=== PATIENT | male | born 1945 | race Caucasian/White ===

== ENCOUNTER → 2016-09-06 | Outpatient (CLI) | payer BC, OTHER ==
[~2016-09-06] MED LIST: CRS/10 PO; DICL50TA3 PO; LISI20TA3 PO; METO50TA7 PO; SILO8CAP PO; ZNTT/150 PO
[2016-09-06 17:25] LABS: BASO % 0.1 %; BASO ABS # 0.01 K/uL (0-0.2); COMPLETE YES; EOS % 1.1 %; HEMATOCRIT 44.1 % (42-52); IG% 0.1 %; LYMPH % 13.8 %; MEAN CELL VOLUME 93.8 fL (80-100); MEAN CORPUSCULAR HEMOGLOBIN 31.5 pg (25-34); MEAN CORPUSCULAR HGB CONC 33.6 g/dl (32-36); MEAN PLATELET VOLUME 10.7 fL (7.4-10.4); MONO % 8.6 %; NEUT % 76.3 %; PLATELET COUNT 192 K/uL (130-400); WHITE BLOOD COUNT 7.98 K/uL (4.8-10.8)
[2016-09-06 17:50] LABS: ALT/SGPT 19 U/L (12-78); AST/SGOT 13 U/L (15-37); BLOOD UREA NITROGEN 18 mg/dl (7-18); BUN/CREATININE RATIO 19.1 (10-20); CALCIUM 8.7 mg/dl (8.5-10.1); CARBON DIOXIDE 30 mmol/L (21-32); CHLORIDE 106 mmol/L (98-107); CREATININE 0.94 mg/dl (0.60-1.40); GLUCOSE 80 mg/dl (70-99); POTASSIUM 4.1 mmol/L (3.5-5.1); SODIUM 143 mmol/L (136-145)
[2016-09-06 18:01] LABS: ALB/GLOB RATIO 1.4 (0.9-2); ALKALINE PHOSPHATASE 59 U/L (45-117); THYROID STIMULATING HORMONE 0.488 uIu/ml (0.300-4.500)
== END | disposition home or self-care (01) ==
LOC: C.LABBFT 12:35
PROVIDERS: ATTEND Internal Medicine
DX: I45.9 Conduction disorder, unspecified (principal); R42 Dizziness and giddiness

== ENCOUNTER → 2016-12-15 | Outpatient (CLI) | payer BC ==
[2016-12-15 12:24] LABS: ALT/SGPT 18 U/L (12-78); BLOOD UREA NITROGEN 17 mg/dl (7-18); BUN/CREATININE RATIO 15.2 (10-20); CARBON DIOXIDE 30 mmol/L (21-32); CHLORIDE 107 mmol/L (98-107); CHOLESTEROL 107 mg/dl (0-200); GLUCOSE 89 mg/dl (70-99); POTASSIUM 4.4 mmol/L (3.5-5.1); SODIUM 144 mmol/L (136-145); TRIGLYCERIDES 78 mg/dl (0-150); VERY LOW DENSITY LIPOPROT CALC 16 mg/dl
[2016-12-15 12:27] LABS: ALB/GLOB RATIO 1.3 (0.9-2); ALKALINE PHOSPHATASE 58 U/L (45-117); AST/SGOT 16 U/L (15-37); CHOLESTEROL/HDL RATIO 2.8; HDL CHOLESTEROL 38 mg/dl; LDL CHOLESTEROL CALCULATED 53 mg/dl
== END | disposition home or self-care (01) ==
LOC: C.LABBFT 08:03
PROVIDERS: ATTEND Physician Assistant Medical
DX: E78.5 Hyperlipidemia, unspecified (principal)

== ENCOUNTER → 2017-04-26 | Outpatient (CLI) | payer BC | END | disposition home or self-care (01) | LOC: C.LABBFT 11:17 | PROVIDERS: ATTEND Internal Medicine | DX: R93.1 Abnormal findings on diagnostic imaging of heart and coronary circulation (principal) ==

== ENCOUNTER → 2017-05-18 | Outpatient (CLI) | payer BC ==
[2017-05-18 14:08] LABS: URINE TOTAL PROTEIN 11.6 mg/dl (0-11.9)
[2017-05-18 14:25] LABS: URINE TOTAL PROTEIN CALC 92.8 mg/24 hr (0-149.1)
--- NOTE | 2017-05-25 11:26 | CODING QUERY MEDICAL NECESSITY ---
SUPPORTING DIAGNOSIS NEEDED A supporting diagnosis is required for the test/procedure performed on this patient in order for us to be reimbursed by the patient's insurance. Please provide a supporting diagnosis for the following test/procedure listed below next to the test name along with your signature. *If there is no additional diagnosis for this patient that would support the following test/procedure please document that below next to the test/procedure. Test(s)/Procedure(s) that require a supporting diagnosis: * PSA DIAGNOSIS: Provider Signature: Date: Thank you Bonny Braga [employer] Once completed, please kindly fax back to [phone] For questions please call [phone]
== END | disposition home or self-care (01) ==
LOC: C.LAB1850 10:29
PROVIDERS: ATTEND Internal Medicine Clinical Cardiac Electrophysiology
DX: N52.9 Male erectile dysfunction, unspecified (principal); F52.8 Other sexual dysfunction not due to a substance or known physiological condition; I51.7 Cardiomegaly

== ENCOUNTER → 2017-06-10 | Outpatient (CLI) | payer BC ==
--- NOTE | 2017-06-10 10:57 | DIAGNOSTIC IMAGING REPORT ---
(RENAL)RETROPERITON COMP HISTORY: 71 years-old Male N28.1 Cyst of kidney, acquiredno latex [id number] history of a 1.7 cm right renal cyst and prostamegaly. Follow-up study. COMPARISON: Renal ultrasound 10/28/2014 TECHNIQUE: Multiple real-time sonographic images of the kidneys and urinary bladder were obtained assessing grayscale appearance and color flow FINDINGS: The right kidney measures 11.3 x 4.8 x 5.6 cm. There is mildly increased renal echogenicity suggesting chronic medical renal disease. 3 mm echogenic focus of the superior pole right kidney suggests nonobstructing calculus. There is no hydronephrosis. There is a cyst of the lower pole right kidney measuring up to 1.9 cm, likely unchanged from comparison study. No suspicious mass lesions of the right kidney. The left kidney measures 11.3 x 6.4 x 6.2 cm. Mildly increased echogenicity of the left kidney is also seen suggesting chronic medical renal disease. No left-sided renal calculi or hydronephrosis. No suspicious mass lesions of the left. Prostamegaly with urinary bladder wall thickening and trabeculation. Bilateral ureteral jets are seen. IMPRESSION: 1. Nonobstructing calculus of the superior pole right kidney, 3 mm. No hydronephrosis. 2. 1.9 cm cyst of the lower pole right kidney appears stable from 10/28/2014. 3. Prostamegaly with evidence of chronic urinary bladder outlet obstruction. 4. Mildly increased echogenicity of the bilateral kidneys suggests chronic medical renal disease. The above report was generated using voice recognition software. It may contain grammatical, syntax or spelling errors. Electronically signed by: Jair Pollard M.D. 06/10/2017 10:56 AM Dictated Date/Time: 06/10/2017 10:52 AM
== END | disposition home or self-care (01) ==
LOC: C.ULTR 09:57
PROVIDERS: ATTEND Urology
DX: N28.1 Cyst of kidney, acquired (principal); N20.0 Calculus of kidney; N40.1 Benign prostatic hyperplasia with lower urinary tract symptoms; N32.0 Bladder-neck obstruction

== ENCOUNTER 2017-10-02 19:15 | Inpatient (IN) | payer BC, OTHER ==
[~2017-10-02] VITALS: Ht 188 cm; Wt 82.0 kg
[~2017-10-02 19:15] MED LIST changes: -METO50TA7 PO; +METO50TA8 PO; +RANI150T85 PO; -ZNTT/150 PO
--- NOTE | 2017-10-02 19:52 | EMERGENCY ROOM VISIT NOTE ---
History Report prepared by Tommy: Jatin Peña Under the Supervision of: Dr. Chari Schaeffer D.O. First contact with patient: 19:34 Chief Complaint: SHORTNESS OF BREATH Stated Complaint: SOB History of Present Illness The patient is a 71 year old male who presents to the Emergency Room with complaints of intermittent episodes of shortness of breath which have been occurring for the past several months. The patient notes that he occasionally feels as if he cannot take in enough air and feels like his lungs are only half filled. The patient reports that nothing brings on his episodes. According to the patient's , the patient occasionally breathes heavily while sleeping, but then stops breathing for short periods of time. She also notes that the patient has been coughing recently. The patient denies any fevers, chills, chest pain, chest pressure, dizziness, or lightheadedness. The patient's notes that the patient's legs have been swollen for the past several months with the left foot being more swollen than the right foot. The patient states that he has a history of kidney stones, but denies being told that his kidneys were ever failing. The patient denies ever being diagnosed with asthma or smoking, but notes that he was regularly exposed to second hand smoke for extended periods of time in the past. The patient reports that he may have cardiac problems, and notes that he is scheduled to have an MRI performed at [facility] on October 11. He denies any recent changes in his medications. The patient was a poor historian and was unable to accurately recall many of his present symptoms. Source of History: patient, spouse/significant other Onset: Several months ago Position: other (Global ) Quality: other (empty feeling in lungs ) Timing: intermittent Associated Symptoms: + cough, No fevers, No chills, No chest pain (or pressure) Note: Denies: Dizziness, lightheadedness Associated Symptoms: Swelling of legs. Review of Systems See HPI for pertinent positives & negatives. A total of 10 systems reviewed and were otherwise negative. Past Medical & Surgical Medical Problems: (1) Hypertension Surgical Problems: (1) History of appendectomy Family History Diabetes mellitus Heart disease Hypertension Kidney stones Social History Smoking Status: Never Smoker Alcohol Use: none Drug Use: none Marital Status: Occupation Status: employed Current/Historical Medications Scheduled Diclofenac (Voltaren), 50 MG PO BID Lisinopril (Prinivil), 20 MG PO QAM Metoprolol Succ (Toprol Xl) (Toprol-Xl), 50 MG PO QAM Metoprolol Succ (Toprol Xl) (Toprol-Xl), 25 MG PO PM Ranitidine (Zantac), 1 TAB PO BID Rosuvastatin Calcium (Crestor), 10 MG PO QPM Silodosin (Rapaflo), 1 CAP PO QPM Allergies Coded Allergies: No Known Allergies (Verified , 12/18/15) Physical Exam Vital Signs Date Time Temp Pulse Resp B/P (MAP) Pulse Ox O2 Delivery O2 Flow Rate FiO2 10/02/17 21:18 70 10/02/17 21:09 73 18 144/87 96 Room Air 10/02/17 19:51 Room Air 95 10/02/17 19:40 95 Room Air 10/02/17 19:29 36.4 74 22 158/91 96 Room Air Physical Exam GENERAL: alert, well appearing, well nourished, no distress, non-toxic EYE EXAM: normal conjunctiva, PERRL and EOM's grossly intact OROPHARYNX: no exudate, no erythema, lips, buccal mucosa, and tongue normal and mucous membranes are moist NECK: supple, no nuchal rigidity, no adenopathy, non-tender LUNGS: Clear to auscultation. Normal chest wall mechanics HEART: no murmurs, S1 normal and S2 normal ABDOMEN: abdomen soft, non-tender, normo-active bowel sounds, no masses, no rebound or guarding. BACK: Back is symmetrical on inspection and there is no deformity, no midline tenderness, no CVA tenderness. SKIN: no rashes and no bruising UPPER EXTREMITIES: upper extremities are grossly normal. LOWER EXTREMITIES: No pitting edema. 2 to 3+ lower extremity edema, left greater than right. NEURO EXAM: Normal sensorium, cranial nerves II-XII [grossly] intact, normal speech, no [gross] weakness of arms, no [gross] weakness of legs. Poor recall regarding medical history or history Medical Decision & Procedures ER Provider Diagnostic Interpretation: Radiology results have been interpreted by the radiologist and reviewed by me. CHEST 2 VIEWS ROUTINE CLINICAL HISTORY: Shortness of breath COMPARISON STUDY: 06/13/2015 FINDINGS: The heart is enlarged. There is subtle subpleural septal edema. There are small pleural effusions. There is no lobar consolidation.[ IMPRESSION: Cardiomegaly and subtle interstitial edema. Small bilateral pleural effusions Electronically signed by: Sriram Dugan M.D. 10/02/2017 8:31 PM Dictated Date/Time: 10/02/2017 8:30 PM Laboratory Results 10/02/17 19:50 Red Blood Count 4.91, Mean Corpuscular Volume 92.5, Mean Corpuscular Hemoglobin 31.0, Mean Corpuscular Hemoglobin Concent 33.5, Mean Platelet Volume 9.8, Neutrophils (%) (Auto) 75.9, Lymphocytes (%) (Auto) 13.7, Monocytes (%) (Auto) 9.2, Eosinophils (%) (Auto) 0.9, Basophils (%) (Auto) 0.1, Neutrophils # (Auto) 6.61, Lymphocytes # (Auto) 1.19, Monocytes # (Auto) 0.80, Eosinophils # (Auto) 0.08, Basophils # (Auto) 0.01 10/02/17 19:50 Test 10/02/17 19:50 10/02/17 21:44 White Blood Count 8.71 K/uL (4.8-10.8) Red Blood Count 4.91 M/uL (4.7-6.1) Hemoglobin 15.2 g/dL (14.0-18.0) Hematocrit 45.4 % (42-52) Mean Corpuscular Volume 92.5 fL (80-100) Mean Corpuscular Hemoglobin 31.0 pg (25-34) Mean Corpuscular Hemoglobin Concent 33.5 g/dl (32-36) Platelet Count 185 K/uL (130-400) Mean Platelet Volume 9.8 fL (7.4-10.4) Neutrophils (%) (Auto) 75.9 % Lymphocytes (%) (Auto) 13.7 % Monocytes (%) (Auto) 9.2 % Eosinophils (%) (Auto) 0.9 % Basophils (%) (Auto) 0.1 % Neutrophils # (Auto) 6.61 K/uL (1.4-6.5) Lymphocytes # (Auto) 1.19 K/uL (1.2-3.4) Monocytes # (Auto) 0.80 K/uL (0.11-0.59) Eosinophils # (Auto) 0.08 K/uL (0-0.5) Basophils # (Auto) 0.01 K/uL (0-0.2) RDW Standard Deviation 48.4 fL (36.4-46.3) RDW Coefficient of Variation 14.3 % (11.5-14.5) Immature Granulocyte % (Auto) 0.2 % Immature Granulocyte # (Auto) 0.02 K/uL (0.00-0.02) Prothrombin Time 11.4 SECONDS (9.0-12.0) Prothromb Time International Ratio 1.1 (0.9-1.1) D-Dimer 670 ug/L FEU (0-500) Anion Gap 8.0 mmol/L (3-11) Est Creatinine Clear Calc Drug Dose 68.7 ml/min Estimated GFR () 74.8 Estimated GFR (Non- 64.6 BUN/Creatinine Ratio 18.8 (10-20) Calcium Level 9.1 mg/dl (8.5-10.1) Magnesium Level 2.1 mg/dl (1.8-2.4) Total Bilirubin 2.9 mg/dl (0.2-1) Aspartate Amino Transf (AST/SGOT) 24 U/L (15-37) Alanine Aminotransferase (ALT/SGPT) 24 U/L (12-78) Alkaline Phosphatase 59 U/L (45-117) Troponin I 0.075 ng/ml (0-0.045) Pro-B-Type Natriuretic Peptide 2666 pg/ml (0-900) Total Protein 6.9 gm/dl (6.4-8.2) Albumin 3.8 gm/dl (3.4-5.0) Globulin 3.1 gm/dl (2.5-4.0) Albumin/Globulin Ratio 1.2 (0.9-2) Urine Color YELLOW Urine Appearance CLEAR (CLEAR) Urine pH 6.0 (4.5-7.5) Urine Specific [place] Ari 1.016 (1.000-1.030) Urine Protein NEG (NEG) Urine Glucose (UA) NEG (NEG) Urine Ketones NEG (NEG) Urine Occult Blood 1+ (NEG) Urine Nitrite NEG (NEG) Urine Bilirubin NEG (NEG) Urine Urobilinogen NEG (NEG) Urine Leukocyte Esterase NEG (NEG) Urine WBC (Auto) 1-5 /hpf (0-5) Urine RBC (Auto) 5-10 /hpf (0-4) Urine Hyaline Casts (Auto) 1-5 /lpf (0-5) Urine Epithelial Cells (Auto) 0-5 /lpf (0-5) Urine Bacteria (Auto) NEG (NEG) Laboratory results per my review. Medications Administered Medications (Trade) Dose Ordered Sig/Jyotsna Route Start Time Stop Time Status Last Admin Dose Admin Furosemide (Lasix Inj) 40 mg NOW STAT IV 10/02/17 21:06 10/02/17 21:07 DC 10/02/17 21:14 40 MG ECG Per My Interpretation Rate (beats per minute): 65 Rhythm: normal sinus Findings: no acute ischemic change, prolonged QT (borderline), no ectopy, other (normal axis, normal qrs ) ED Course 1934: The patient was evaluated in room B9. A complete history and physical exam was performed 2105: Ordered Furosemide 40 mg IV. 2103: I reevaluated the patient. There are no changes in the quality of his symptoms. I was able to find the patient's [employer]. The patient sees Dr. Lobo. He was being sent to [place] for a Cardiac MRI to evaluate for Cardiac amyloidosis. 2141: I discussed the patient's case with Dr. Francesca Sim [facility], he will evaluate the patient for further treatment and care. Medical Decision Differential diagnosis: Etiologies such as infections, reactive airway disease, pneumonia, pneumothorax , COPD, CHF, cardiac ischemia, pulmonary embolism, musculoskeletal, gastrointestinal, as well as others were entertained. Pt with intermittent SOB but increased LE edema and cough noted more by . Patient is a poor historian. No evidence of acute infectious etiology. Patient follows with Dr. Lobo of cardiology as an outpatient and was to be sent to [place] for an MRI for possible evaluation for amyloidosis. Patient with no other complaints of pain, not hypoxic here, vital signs stable throughout. Likely troponin elevated secondary to congestive heart failure. I do not suspect DVT concerning her lower extremity edema. No evidence of other acute lung pathology. Patient with no acute EKG changes. Medication Reconcilliation Current Medication List: was personally reviewed by me Blood Pressure Screening Patient's blood pressure: Elevated blood pressure Blood pressure disposition: Referred to PCP Consults Time Called: 2034 Consulting Physician: Dr. Francesca Sim [facility] Returned Call: 2037 I discussed the patient's case with Dr. Ma - [facility], he will evaluate the patient for further treatment and care. Impression Primary Impression: Dyspnea Additional Impressions: CHF (congestive heart failure) Elevated troponin Critical Care I have personally spent greater than 35 minutes of critical care time in the direct management of this patient. This includes bedside care, interpretation of diagnostic studies, and testing, discussion with consultants, patient, and family members, and other required patient management activities. This 35 minutes is in excess of all separately billable procedures. Scribe Attestation The scribe's documentation has been prepared under my direction and personally reviewed by me in its entirety. I confirm that the note above accurately reflects all work, treatment, procedures, and medical decision making performed by me. Departure Information Dispostion Being Evaluated By Hospitalist Referrals Mendel Meyer M.D. (PCP) Patient Instructions My [facility] Problem Qualifiers Primary Impression: Dyspnea Dyspnea type: shortness of breath Qualified Codes: R06.02 - Shortness of breath Additional Impressions: CHF (congestive heart failure) Heart failure type: combined systolic and diastolic Heart failure chronicity : acute on chronic Qualified Codes: I50.43 - Acute on chronic combined systolic (congestive) and diastolic (congestive) heart failure
[2017-10-02 20:07] LABS: BASO % 0.1 %; BASO ABS # 0.01 K/uL (0-0.2); EOS % 0.9 %; EOS ABS # 0.08 K/uL (0-0.5); HEMATOCRIT 45.4 % (42-52); HEMOGLOBIN 15.2 g/dL (14.0-18.0); IG# 0.02 K/uL (0.00-0.02); LYMPH % 13.7 %; LYMPH ABS # 1.19 K/uL (1.2-3.4); MEAN CELL VOLUME 92.5 fL (80-100); MEAN CORPUSCULAR HGB CONC 33.5 g/dl (32-36); MEAN PLATELET VOLUME 9.8 fL (7.4-10.4); MONO % 9.2 %; NEUT % 75.9 %; NEUT ABS # 6.61 K/uL (1.4-6.5); PLATELET COUNT 185 K/uL (130-400); RED CELL DISTRIBUTION WIDTH CV 14.3 % (11.5-14.5); RED CELL DISTRIBUTION WIDTH SD 48.4 fL (36.4-46.3); WHITE BLOOD COUNT 8.71 K/uL (4.8-10.8)
[2017-10-02] MEDS ORDERED: METO50TA8 PO (20:09)
[2017-10-02 20:28] LABS: INR 1.1 (0.9-1.1)
--- NOTE | 2017-10-02 20:33 | DIAGNOSTIC IMAGING REPORT ---
CHEST 2 VIEWS ROUTINE CLINICAL HISTORY: Shortness of breath COMPARISON STUDY: 06/13/2015 FINDINGS: The heart is enlarged. There is subtle subpleural septal edema. There are small pleural effusions. There is no lobar consolidation.[ IMPRESSION: Cardiomegaly and subtle interstitial edema. Small bilateral pleural effusions Electronically signed by: Sriram Dugan M.D. 10/02/2017 8:31 PM Dictated Date/Time: 10/02/2017 8:30 PM
[2017-10-02 20:34] LABS: ALBUMIN 3.8 gm/dl (3.4-5.0); CALCIUM 9.1 mg/dl (8.5-10.1); CREATININE 1.13 mg/dl (0.60-1.40); POTASSIUM 4.6 mmol/L (3.5-5.1)
[2017-10-02 20:42] LABS: TOTAL PROTEIN 6.9 gm/dl (6.4-8.2)
[2017-10-02] MEDS ORDERED: FUROSEMIDE 40 MG/4 ML VIAL IV STA (21:06)
--- NOTE | 2017-10-02 22:14 | History and Physical ---
History & Physical Date & Time of Service: Oct 02, 2017 at 22:14 Chief Complaint: SOB Primary Care Physician: Mendel Meyer M.D. History of Present Illness Source: patient, spouse, hospital records The patient is a 71-year-old male who presents to the emergency department with a several month history of shortness of breath, worse over the past few weeks, worsening cough has developed in the past 2 weeks, along with increased lower extremity swelling. Family History Diabetes mellitus Heart disease Hypertension Kidney stones Social History Smoking Status: Never Smoker Smokeless Tobacco Use: No Alcohol Use: none Drug Use: none Marital Status: Housing status: lives with family Occupational Status: employed Immunizations History of Influenza Vaccine: Yes Influenza Vaccine Date: May 04, 2008 History of Tetanus Vaccine?: No History of Pneumococcal: No History of Hepatitis B Vaccine: No Allergies Coded Allergies: No Known Allergies (Verified , 12/18/15) Home Medications Scheduled Diclofenac (Voltaren), 50 MG PO BID Lisinopril (Prinivil), 20 MG PO QAM Metoprolol Succ (Toprol Xl) (Toprol-Xl), 50 MG PO QAM Metoprolol Succ (Toprol Xl) (Toprol-Xl), 25 MG PO PM Ranitidine (Zantac), 1 TAB PO BID Rosuvastatin Calcium (Crestor), 10 MG PO QPM Silodosin (Rapaflo), 1 CAP PO QPM Review of Systems The patient denies chest pain, sore throat, fevers, chills, sweats, weight change, fatigue, nausea, vomiting, diarrhea , constipation, abdominal pain, pelvic pain, blood in urine or stool, dysuria, lightheadedness, dizziness, headache, loss of consciousness, rash, abnormal bruising or bleeding, imbalance, focal or generalized weakness, generalized arthralgias or myalgias, back or neck pain, or night sweats. The review of systems is otherwise negative other than for that already noted above, and at least 10 systems have been reviewed. Physical Exam Vital Signs Date Time Temp Pulse Resp B/P (MAP) Pulse Ox O2 Delivery O2 Flow Rate FiO2 10/02/17 21:18 70 10/02/17 21:09 73 18 144/87 96 Room Air 10/02/17 19:51 Room Air 95 10/02/17 19:40 95 Room Air 10/02/17 19:29 36.4 74 22 158/91 96 Room Air The patient is awake, alert and oriented 3, well developed and well nourished, normocephalic and atraumatic, lying in bed and in no acute distress. HEENT--PERRL, EOMI, mucous membranes and oropharynx dry. Neck--supple. No JVD. No bruits. Thyroid normal, trachea midline, no adenopathy. Heart--normal S1 and S2. No murmurs, rubs or gallops. Lungs--clear bilaterally, no respiratory distress, no accessory muscle use. Abdomen--normal bowel sounds and soft. Nontender. Nondistended, no hernias or masses, no organomegaly. Extremities--no cyanosis or clubbing. There is bilateral pretibial 2+ pitting edema. There are good distal pulses b/l. Dermatologic--normal skin turgor, normal color, no abnormal lymph nodes, no rash. Neurologic--cranial nerves II through XII grossly intact. Rheumatologic--normal range of motion. Psychiatric--normal affect. Diagnostics Laboratory Results Results Past 24 Hours Test 10/02/17 19:50 10/02/17 21:44 Range/Units White Blood Count 8.71 4.8-10.8 K/uL Red Blood Count 4.91 4.7-6.1 M/uL Hemoglobin 15.2 14.0-18.0 g/dL Hematocrit 45.4 42-52 % Mean Corpuscular Volume 92.5 80-100 fL Mean Corpuscular Hemoglobin 31.0 25-34 pg Mean Corpuscular Hemoglobin Concent 33.5 32-36 g/dl Platelet Count 185 130-400 K/uL Mean Platelet Volume 9.8 7.4-10.4 fL Neutrophils (%) (Auto) 75.9 % Lymphocytes (%) (Auto) 13.7 % Monocytes (%) (Auto) 9.2 % Eosinophils (%) (Auto) 0.9 % Basophils (%) (Auto) 0.1 % Neutrophils # (Auto) 6.61 1.4-6.5 K/uL Lymphocytes # (Auto) 1.19 1.2-3.4 K/uL Monocytes # (Auto) 0.80 0.11-0.59 K/uL Eosinophils # (Auto) 0.08 0-0.5 K/uL Basophils # (Auto) 0.01 0-0.2 K/uL RDW Standard Deviation 48.4 36.4-46.3 fL RDW Coefficient of Variation 14.3 11.5-14.5 % Immature Granulocyte % (Auto) 0.2 % Immature Granulocyte # (Auto) 0.02 0.00-0.02 K/uL Sodium Level 141 136-145 mmol/L Potassium Level 4.6 3.5-5.1 mmol/L Chloride Level 106 98-107 mmol/L Carbon Dioxide Level 27 21-32 mmol/L Anion Gap 8.0 3-11 mmol/L Blood Urea Nitrogen 21 7-18 mg/dl Creatinine 1.13 0.60-1.40 mg/dl Est Creatinine Clear Calc Drug Dose 68.7 ml/min Estimated GFR () 74.8 Estimated GFR (Non- 64.6 BUN/Creatinine Ratio 18.8 10-20 Random Glucose 101 70-99 mg/dl Calcium Level 9.1 8.5-10.1 mg/dl Magnesium Level 2.1 1.8-2.4 mg/dl Total Bilirubin 2.9 0.2-1 mg/dl Aspartate Amino Transf (AST/SGOT) 24 15-37 U/L Alanine Aminotransferase (ALT/SGPT) 24 12-78 U/L Alkaline Phosphatase 59 45-117 U/L Troponin I 0.075 0-0.045 ng/ml Pro-B-Type Natriuretic Peptide 2666 0-900 pg/ml Total Protein 6.9 6.4-8.2 gm/dl Albumin 3.8 3.4-5.0 gm/dl Globulin 3.1 2.5-4.0 gm/dl Albumin/Globulin Ratio 1.2 0.9-2 Diagnostic Radiology Patient Name: DALILA MUHAMMAD Unit Number: [id number] Dictated: 10/02/172029 Transcribed: 10/02/172029 ARG Printed Date/Time: [~ rep prt dt]/[~ rep prt tm] [~ rep ct labl] - [~ rep ct ivnm] [facility] [place] [address] Dictated: 10/02/172029 Transcribed: 10/02/172029 ARG Printed Date/Time: [~ rep prt dt]/[~ rep prt tm] [~ rep ct labl] - [~ rep ct ivnm] [~ rep ct add3]] CHEST 2 VIEWS ROUTINE CLINICAL HISTORY: Shortness of breath COMPARISON STUDY: 06/13/2015 FINDINGS: The heart is enlarged. There is subtle subpleural septal edema. There are small pleural effusions. There is no lobar consolidation.[ IMPRESSION: Cardiomegaly and subtle interstitial edema. Small bilateral pleural effusions Electronically signed by: Sriram Dugan M.D. 10/02/2017 8:31 PM Dictated Date/Time: 10/02/2017 8:30 PM The status of this report is Signed. Draft = Not yet reviewed or approved by Radiologist. Signed = Reviewed and approved by Radiologist. <AttendingPhy></AttendingPhy> <FamilyPhy>Mendel Meyer M.D.</FamilyPhy > <PrimaryPhy>Mendel Meyer M.D.</PrimaryPhy> <UnitNumber>[id number]</ UnitNumber> <VisitNumber>[id number]</VisitNumber> <PatientName>DALILA MUHAMMAD</ PatientName> <DateOfBirth>1945</DateOfBirth> <Location>C.EDB</Location> < ServiceDate>10/02/17</ServiceDate> <MNE>ESINDI</MNE> <OrderingPhy>Maksim Chari Radha DO</OrderingPhy> <OrderingPhyMNE>f rep ord dr covarrubias</OrderingPhyMNE> < DictatingPhyMNE>f rep dict dr covarrubias</DictatingPhyMNE> <CCListMNE>f rep ct mne</ CCListMNE> <AdmittingPhyMNE>f pt admit dr covarrubias</AdmittingPhyMNE> <AttendingPhyMNE >f pt attend dr covarrubias</AttendingPhyMNE> <ConsultingPhyMNE>f pt consult dr covarrubias</ConsultingPhyMNE> <FamilyPhyMNE>f pt fam dr covarrubias</FamilyPhyMNE> <OtherPhyMNE>f pt other dr covarrubias</OtherPhyMNE> < PrimaryPhyMNE>f pt prim care dr covarrubias</PrimaryPhyMNE> <ReferringPhyMNE>f pt referring dr covarrubias</ReferringPhyMNE> EKG EKG show NSR at 75, there are PVC's, no acute ST-T changes. Impression Assessment and Plan Acute CHF/elevated troponin/hypertension-- The patient will be admitted to telemetry for serial cardiac enzymes, serial EKG's, cardiac rhythm monitoring and a 2-D echocardiogram with Dopplers. Given Lasix 40 mg IV in the ED. Lasix 40 mg IV every morning. Hold diclofenac sodium 50 mg p.o. twice daily as a possible precipitant. Continue lisinopril 20 mg p.o. every morning. Continue metoprolol succinate 50 mg every morning and 25 mg every afternoon. Consult his reject opener and filler Dr. Lobo, there has been a question of possible amyloidosis. Hyperlipidemia--continue rosuvastatin 10 mg p.o. daily. BPH--substitute for Rapaflo every evening. Advanced Directives Existing Advance Directive: No Existing Living Will: No Existing Power of Coconut Candy Maker: No Resuscitation Status level 1 full resuscitation VTE Prophylaxis Will order VTE Prophylaxis: Yes Social Service Consult None Apply
[2017-10-02] MEDS ORDERED: POLYETHYLENE (MIRALAX) 17 GM PACK PO PRN (22:15)
[2017-10-02] MEDS ORDERED: ALUMINUM/MAGNESIUM/SIMETH (MAALOX MAX) 30 ML UDC PO PRN (22:15)
[2017-10-02] MEDS ORDERED: MAGNESIUM HYDROXIDE SUSP 30 ML UDC PO PRN (22:15)
[2017-10-02] MEDS ORDERED: ACETAMINOPHEN 325 MG TAB PO PRN (22:15)
[2017-10-02] MEDS ORDERED: NITROGLYCERIN 0.4 MG SL PER TAB CHARGE SL PRN (22:15)
[2017-10-02] MEDS ORDERED: ONDANSETRON 8MG OD TAB PO PRN (22:30)
[2017-10-03 00:15] VITALS: BP 164/80; PULSE 78; TEMP 37.2; O2SAT 96; Ht 188 cm; Wt 82.0 kg
[2017-10-03] MEDS ORDERED: LIDOCAINE HCL 2% JELLY 30 ML TUBE EXT ONE (00:17)
[2017-10-03] MEDS ORDERED: TAMSULOSIN HCL 0.4 MG CAP PO ONE (01:00)
[2017-10-03] MEDS ORDERED: NURSING VERBAL MED ORDER ONE (01:00)
[2017-10-03] MEDS ORDERED: OPTIRAY 320 IV PRN (01:30)
[2017-10-03 03:18] VITALS: BP 140/78; PULSE 69; TEMP 36.6; O2SAT 96
[2017-10-03 06:37] LABS: BASO % 0.1 %; BASO ABS # 0.01 K/uL (0-0.2); EOS % 0.6 %; EOS ABS # 0.06 K/uL (0-0.5); HEMATOCRIT 45.8 % (42-52); HEMOGLOBIN 15.1 g/dL (14.0-18.0); IG# 0.04 K/uL (0.00-0.02); LYMPH % 8.5 %; LYMPH ABS # 0.88 K/uL (1.2-3.4); MEAN CELL VOLUME 92.9 fL (80-100); MEAN CORPUSCULAR HEMOGLOBIN 30.6 pg (25-34); MEAN PLATELET VOLUME 9.7 fL (7.4-10.4); MONO % 9.5 %; MONO ABS # 0.98 K/uL (0.11-0.59); NEUT % 80.9 %; PLATELET COUNT 170 K/uL (130-400); RED CELL DISTRIBUTION WIDTH CV 14.1 % (11.5-14.5); RED CELL DISTRIBUTION WIDTH SD 47.6 fL (36.4-46.3); WHITE BLOOD COUNT 10.37 K/uL (4.8-10.8)
[2017-10-03 06:56] LABS: CALCIUM 9.3 mg/dl (8.5-10.1); CREATININE 1.05 mg/dl (0.60-1.40); POTASSIUM 4.2 mmol/L (3.5-5.1)
[2017-10-03 07:12] LABS: CKMB 2.1 ng/ml (0.5-3.6)
--- NOTE | 2017-10-03 07:20 | DIAGNOSTIC IMAGING REPORT ---
CT ANGIOGRAM OF THE CHEST CLINICAL HISTORY: Dyspnea. Elevated d-dimer. COMPARISON STUDY: Chest x-ray dated 10/02/2017. TECHNIQUE: Following the IV administration of 92 cc of Optiray 320, CT angiogram of the chest was performed from the upper abdomen to the thoracic inlet utilizing the pulmonary embolus protocol. Images are reviewed in the axial, sagittal, and coronal planes. 3-D MIPS images are created and assessed. IV contrast was administered without complication. A dose lowering technique was utilized adhering to the principles of ALARA. The examination is significantly degraded by motion artifact, as well as by streak artifact from the left arm which could not be elevated above the chest. CT DOSE: 502.11 mGy.cm FINDINGS: Thyroid: Imaged portions of the thyroid gland are normal in size and attenuation. Thoracic aorta: The thoracic aorta is normal in caliber and demonstrates standard 3-vessel arch anatomy. The thoracic aorta is not well opacified. Pulmonary vasculature: The main pulmonary arteries appear dilated suggesting pulmonary artery hypertension. There are no filling defects identified in main, lobar, or segmental pulmonary branches to suggest pulmonary embolus. Heart: The heart is enlarged and there is a small pericardial effusion. The coronary arteries are densely calcified. Lungs and pleural spaces: Evaluation of lung parenchyma is degraded by motion artifact. Apical scarring is observed. There are small pleural effusions, left larger than right associated atelectasis. No airspace consolidation is seen typical for pneumonia. The trachea and central airways are clear. Scattered calcified granulomas are identified. A 3 mm right apical pulmonary nodule is seen on image #[id number]. Mediastinum: There is no mediastinal lymphadenopathy. Laverne: Clear. Axillae: There is no axillary lymphadenopathy. Upper abdomen: A 1.5 cm cyst is suggested in the left hepatic lobe. Partially visualized upper abdominal viscera is otherwise within normal limits. Skeletal structures: The skeletal structures are osteopenic. Degenerative change is seen in the shoulders and thoracic spine. No lytic or blastic bony lesions are seen. IMPRESSION: 1. Streak and motion compromised examination. 2. There is no evidence of pulmonary embolus in the main, lobar, or segmental pulmonary arteries. 3. Cardiomegaly and pericardial effusion. 4. Left larger than right pleural effusions with associated atelectasis. 5. Additional findings as above. Electronically signed by: Wes Zarco M.D. 10/03/2017 7:18 AM Dictated Date/Time: 10/03/2017 7:13 AM
[2017-10-03 08:07] VITALS: BP 151/83; PULSE 69; TEMP 36.6; O2SAT 94
[2017-10-03] MEDS ORDERED: METOPROLOL SUCC 50MG EXT REL TAB PO SCH (09:00)
[2017-10-03] MEDS ORDERED: LISINOPRIL 20 MG TAB PO SCH (09:00)
[2017-10-03] MEDS ORDERED: FUROSEMIDE INJ 40 MG in SYRINGE 0 ML IV SCH (09:00)
[2017-10-03] MEDS ORDERED: RANITIDINE HCL 150 MG TAB PO SCH (09:00)
--- NOTE | 2017-10-03 09:05 | Cardiology Consultation ---
Cardiology Consultation Date of Consultation: Oct 03, 2017. Requesting Physician: Khoa Reason for Consultation: javon Pt evaluation today including: conversation w/ patient, physical exam, chart review, lab review, review of studies, review of inpatient medication list History of Present Illness The patient is a 71-year-old gentleman with a history of left ventricular hypertrophy who had been despite driving shortness of breath. Seems the patient has had worsening shortness of breath over an extended appear to times associated with some lower extremity edema. This is documented in his history and physical at the time of admission. However, during conversation today the patient cannot recall why he is in the hospital. He states that he rarely has any dyspnea. He is a very sedentary individual who does not perform extreme exertion due to his 's concern about such activity in the fact that he has recently retired from 3 jobs. He did not describe any significant exertion recently. He is limited more by lack of motivation rather than symptoms associated with exertion. He did not describe exertional dyspnea or any limiting dyspnea. He did not describe orthopnea or paroxysmal nocturnal dyspnea. He is not describing any chest discomfort. He has longstanding symptoms of palpitation that are unchanged. He has not experienced any recent dizziness or lightheadedness. He has not had syncope. Past Medical/Surgical History PVCs Aortic regurgitation Left ventricular hypertrophy Hyperlipidemia Hypertension Mitral regurgitation Nephrolithiasis Thyroid goiter Past surgical history Appendectomy Rotator cuff repair Family History Diabetes mellitus Heart disease Hypertension Kidney stones Noncontributory given his advanced age Social History Smoking Status: Never Smoker History of Alcohol Use: No Currently lives locally with his Review of Systems No recent constitutional symptoms such as fevers or chills. Patient not recall any significant weight gain. Did have an episode of diarrhea in July but not recently. He has some discomfort involving his James catheter currently. All Other Systems: Reviewed and Negative Allergies Coded Allergies: No Known Allergies (Verified , 12/18/15) Medications Current Inpatient Medications Medications (Trade) Dose Ordered Sig/Jyotsna Route Start Time Stop Time Status Last Admin Dose Admin Acetaminophen (Tylenol Tab) 650 mg Q4H PRN PO 10/02/17 22:15 11/01/17 22:14 Al Hydrox/Mg Hydrox/Simethicone (Maalox Max Susp) 15 ml Q4H PRN PO 10/02/17 22:15 11/01/17 22:14 Magnesium Hydroxide (Milk Of Magnesia Susp) 30 ml Q12H PRN PO 10/02/17 22:15 11/01/17 22:14 Nitroglycerin (Nitrostat Tab) 0.4 mg UD PRN SL 10/02/17 22:15 11/01/17 22:14 Polyethylene (Miralax Powder Packet) 17 gm DAILY PRN PO 10/02/17 22:15 11/01/17 22:14 Lisinopril (Zestril Tab) 20 mg QAM PO 10/03/17 09:00 11/02/17 08:59 10/03/17 08:50 20 MG Metoprolol Succinate (Toprol Xl Tab) 25 mg PM PO 10/03/17 21:00 11/02/17 20:59 Metoprolol Succinate (Toprol Xl Tab) 50 mg QAM PO 10/03/17 09:00 11/02/17 08:59 10/03/17 08:50 50 MG Ranitidine HCl (zANTac TAB) 150 mg BID PO 10/03/17 09:00 11/02/17 08:59 10/03/17 08:50 150 MG Rosuvastatin Calcium (Crestor Tab) 10 mg QPM PO 10/03/17 21:00 11/02/17 20:59 Miscellaneous Information (Order Awaiting Action) 1 ea QS N/A 10/03/17 00:00 11/02/17 00:00 Ondansetron HCl (Zofran Odt) 8 mg Q6H PRN PO 10/02/17 22:30 11/01/17 22:29 Furosemide 40 mg/ Syringe 4 ml @ 4 mls/min DAILY@0900 IV 10/03/17 09:00 11/02/17 08:59 10/03/17 08:50 4 MLS/MIN Ioversol (Optiray 320) 100 ml UD PRN IV 10/03/17 01:30 10/07/17 01:29 Physical Exam Vital Signs Past 12 Hours Date Time Temp Pulse Resp B/P (MAP) Pulse Ox O2 Delivery O2 Flow Rate FiO2 10/03/17 08:07 36.6 69 16 151/83 (105) 94 Room Air 10/03/17 04:00 Room Air 10/03/17 03:18 36.6 69 19 140/78 (98) 96 Room Air 10/03/17 00:15 37.2 78 20 164/80 96 Room Air 10/02/17 23:18 70 18 115/62 94 10/02/17 23:15 70 18 115/62 94 Room Air 10/02/17 21:18 70 10/02/17 21:09 73 18 144/87 96 Room Air The patient is alert and oriented. Mood and affect appeared normal. He answered all questions appropriately. HEENT: Pupils are equal and reactive to light and accommodation. Extraocular movements are intact. The sclerae are anicteric. Neuro: Cranial nerves intact Neck: Patient's neck is supple. He has palpable carotid pulses bilaterally without bruits on auscultation. There is no evidence of jugular venous distention. The thyroid is not enlarged. Lungs: Clear to auscultation bilaterally. He has good air movement without use of accessory muscles. No rales wheezes or rhonchi. Cardiac: Heart demonstrates a regular rate and rhythm with occasional ectopy. Normal S1 and S2. No murmurs on examination. Pulses: The patient has palpable radial pulses bilaterally that are equal in intensity Extremities: There was no evidence of hypoperfusion. There is no cyanosis or clubbing. Mild pitting edema left worse than right. Skin: I did not appreciate any rashes on examination today. Data Laboratory Results: Last 24 Hours Test 10/02/17 19:50 10/02/17 21:44 10/03/17 06:14 White Blood Count 8.71 K/uL 10.37 K/uL Red Blood Count 4.91 M/uL 4.93 M/uL Hemoglobin 15.2 g/dL 15.1 g/dL Hematocrit 45.4 % 45.8 % Mean Corpuscular Volume 92.5 fL 92.9 fL Mean Corpuscular Hemoglobin 31.0 pg 30.6 pg Mean Corpuscular Hemoglobin Concent 33.5 g/dl 33.0 g/dl Platelet Count 185 K/uL 170 K/uL Mean Platelet Volume 9.8 fL 9.7 fL Neutrophils (%) (Auto) 75.9 % 80.9 % Lymphocytes (%) (Auto) 13.7 % 8.5 % Monocytes (%) (Auto) 9.2 % 9.5 % Eosinophils (%) (Auto) 0.9 % 0.6 % Basophils (%) (Auto) 0.1 % 0.1 % Neutrophils # (Auto) 6.61 K/uL 8.40 K/uL Lymphocytes # (Auto) 1.19 K/uL 0.88 K/uL Monocytes # (Auto) 0.80 K/uL 0.98 K/uL Eosinophils # (Auto) 0.08 K/uL 0.06 K/uL Basophils # (Auto) 0.01 K/uL 0.01 K/uL RDW Standard Deviation 48.4 fL 47.6 fL RDW Coefficient of Variation 14.3 % 14.1 % Immature Granulocyte % (Auto) 0.2 % 0.4 % Immature Granulocyte # (Auto) 0.02 K/uL 0.04 K/uL Prothrombin Time 11.4 SECONDS Prothromb Time International Ratio 1.1 D-Dimer 670 ug/L FEU Sodium Level 141 mmol/L 140 mmol/L Potassium Level 4.6 mmol/L 4.2 mmol/L Chloride Level 106 mmol/L 104 mmol/L Carbon Dioxide Level 27 mmol/L 32 mmol/L Anion Gap 8.0 mmol/L 5.0 mmol/L Blood Urea Nitrogen 21 mg/dl 18 mg/dl Creatinine 1.13 mg/dl 1.05 mg/dl Est Creatinine Clear Calc Drug Dose 68.7 ml/min 73.8 ml/min Estimated GFR () 74.8 81.8 Estimated GFR (Non- 64.6 70.6 BUN/Creatinine Ratio 18.8 17.0 Random Glucose 101 mg/dl 101 mg/dl Calcium Level 9.1 mg/dl 9.3 mg/dl Magnesium Level 2.1 mg/dl 2.3 mg/dl Total Bilirubin 2.9 mg/dl Aspartate Amino Transf (AST/SGOT) 24 U/L Alanine Aminotransferase (ALT/SGPT) 24 U/L Alkaline Phosphatase 59 U/L Troponin I 0.075 ng/ml 0.073 ng/ml Pro-B-Type Natriuretic Peptide 2666 pg/ml Total Protein 6.9 gm/dl Albumin 3.8 gm/dl Globulin 3.1 gm/dl Albumin/Globulin Ratio 1.2 Urine Color YELLOW Urine Appearance CLEAR Urine pH 6.0 Urine Specific [place] 1.016 Urine Protein NEG Urine Glucose (UA) NEG Urine Ketones NEG Urine Occult Blood 1+ Urine Nitrite NEG Urine Bilirubin NEG Urine Urobilinogen NEG Urine Leukocyte Esterase NEG Urine WBC (Auto) 1-5 /hpf Urine RBC (Auto) 5-10 /hpf Urine Hyaline Casts (Auto) 1-5 /lpf Urine Epithelial Cells (Auto) 0-5 /lpf Urine Bacteria (Auto) NEG Total Creatine Kinase 50 U/L Creatine Kinase MB 2.1 ng/ml Creatine Kinase MB Ratio 4.2 Imaging: CT PE protocol did not reveal any evidence of pulmonary embolus. Very small pleural and pericardial effusions. Cardiomegaly. EKG: Normal sinus rhythm with low voltage in the limb leads. Single PVC. Telemetry reviewed: Occasional PVCs Echocardiogram performed 04/18/2017: Severe LVH, stage II diastolic dysfunction , [id number] mitral regurgitation Assessment & Plan 1. Decompensated diastolic heart failure: While the patient describes few symptoms recently, did have an elevated BNP and has some peripheral edema. He diuresed quite well yesterday on a single dose of IV diuretic. I would be cautious regarding more aggressive diuresis in the setting of a severe LVH in small ventricular cavity. I think if he is minimally symptomatic we can simply monitor his weights as an outpatient and dose his Lasix accordingly. I do not think he requires a daily dose of Lasix at this point. The etiology of his decompensation is unclear. He did have elevated blood pressures recently. The possibility of an occult arrhythmia also exists although he did not describe any new palpitations recently. 2. Elevated cardiac biomarkers: These are minimally elevated likely related to LVH in heart failure. I do not believe he has symptoms or findings consistent with a recent acute coronary syndrome. I would not pursue an ischemic workup at this time. He is noted to have significant calcification on CT scan suggestive of coronary disease. However, in the absence of symptoms do not think there is any utility in pursuing this. 3. Valvular heart disease: Patient has mild to moderate mitral regurgitation. No significant murmur on exam. This can be followed over time 4. LVH: Patient was advised to undergo cardiac MRI which she has scheduled later this month. This will help distinguish between hypertrophic cardiomyopathy, amyloid or possibly hypertension related LVH. In the interim he is on a good dose of beta-michelle which could be increased based on his recent blood pressures. Perhaps 50 mg of long-acting succinate twice daily would be reasonable. No current indication for ICD based on his symptoms or other findings. 5. Cognitive function: The patient seemed confused regarding his admission to the hospital. He could not recall symptoms or events leading up to his admission. He also repeated the same story to me twice. He did not recognize me from the outpatient setting and continuously referred to me in the 3rd person.
--- NOTE | 2017-10-03 09:11 | Family Medicine Progress Note ---
Progress Note Date of Service Oct 03, 2017. Subjective Pt describes a feeling that he is out of breath more than normal for him lately. Says he is probably being over cautious, but states that he's lost "several friends" lately. Says that he normally is very active, walks for 30 [address] in the mall twice a week, watches his diet. Follows cardiology for his "skipped beats". Denies chest pain, head aches, blurry vision, PND, orthopnea, leg swelling or weight gain. ROS See HPI for pertinent positives and negatives. Objective Physical Exam Notes: GENERAL: Awake, alert, well-appearing, in no distress. EYES: Normal conjunctiva. Sclera non-icteric. NECK: FROM. No JVD. RESPIRATORY: Clear to auscultation. CARDIAC: Regular rate, normal rhythm. Extremities warm and well perfused. Pulses equal. ABDOMEN: Soft, non-distended. No tenderness to palpation. No rebound or guarding. No masses. LOWER EXTREMITIES: Calves are equal size bilaterally and non-tender. TRACE edema. No discoloration. NEURO: No motor deficits noted. SKIN: No rash or jaundice noted. Assessment and Plan 71M here for acute CHF exacerbation LVH - diuresed almost 4L today with IV lasix. Per Cardiology however home lasix dose not recommended at this time -- will follow up in Heart Failure clinic to assess if diuretic medication necessary. Elev cardiac biomarkers minimally elevated, given lack of ischemic symptoms, ischemic workup not pursued at this time. Pt should still undergo cardiac MRI as advised by cardiology, which is scheduled later this month. Resident Tracking Resident Involvement: Resident Care Provided Care Provided: Adult Hospital Medicine
[2017-10-03 12:03] VITALS: BP 137/85; PULSE 68; TEMP 36.8; O2SAT 94
[2017-10-03 15:11] LABS: CKMB 1.9 ng/ml (0.5-3.6)
--- NOTE | 2017-10-03 15:41 | DIAGNOSTIC IMAGING REPORT ---
L VENOUS DOPP LOWER EXT UNILAT HISTORY: 71 years-old Male left calf pain acute left-sided calf pain COMPARISON: None available TECHNIQUE: Multiple real-time sonographic images of the left lower extremity deep venous structures were obtained assessing grayscale appearance, color and spectral flow FINDINGS: There is normal flow, compressibility, phasicity and augmentation of the left lower extremity deep venous structures. IMPRESSION: No sonographic evidence of deep venous thrombosis. The above report was generated using voice recognition software. It may contain grammatical, syntax or spelling errors. Electronically signed by: Jair Pollard M.D. 10/03/2017 3:40 PM Dictated Date/Time: 10/03/2017 3:39 PM
[2017-10-03 15:43] VITALS: BP 146/81; PULSE 71; TEMP 36.9; O2SAT 91
[2017-10-03] MEDS ORDERED: METO50TA8 PO (17:37)
--- NOTE | 2017-10-03 17:56 | ECHOCARDIOGRAM REPORT ---
*NOTICE TO RECEIVING [employer]Y This information is strictly Confidential and protected under [place] law. [place] law prohibits you from making any further disclosure of this information unless further disclosure is expressly permitted by the written consent of the person to whom it pertains or is authorized by law. A general authorization for the release of medical or other information is not sufficient for this purpose. Hospital accepts no responsibility if the information is made available to any other person, INCLUDING THE PATIENT. Interpretation Summary * Name: DALILA MUHAMMAD Study Date: 10/03/2017 06:46 AM BP: 151/83 mmHg * Patient Location: C.2E\S\E209\S\1 HR: 69 * : 1945 (M/d/yyyy) Gender: Male Height: 74 in * Age: 71 yrs Ethnicity: CA Weight: 192 lb * Ordering Physician: Andrea Ma * Referring Physician: Self, Referred * Performed By: Doris Eldridge RDCS * * Reason For Study: Congestive Heart Failure * BSA: 2.1 m2 * -- Conclusions -- * There is severe concentric left ventricular hypertrophy. * Left ventricular systolic function is low normal. * There is moderate right ventricular hypertrophy. * The left atrium is mildly dilated. * The right atrium is moderately dilated. * Mild aortic regurgitation. * There is moderate mitral regurgitation. * Right ventricular systolic pressure is elevated at 40-50mmHg. * The inferior vena cava is mildly dilated. Procedure Details * A complete two-dimensional transthoracic echocardiogram was performed (2D, M-mode, Doppler and color flow Doppler). Left Ventricle * The left ventricle is grossly normal size. * There is severe concentric left ventricular hypertrophy. * Ejection Fraction = 55-60%. * Left ventricular systolic function is low normal. * The transmitral spectral Doppler flow pattern is abnormal for age. * There is an element of diastolic dysfunction which is likely restrictive * The left ventricular wall motion is normal. * Perhaps slight hypokinesis involving the inferior segements. Right Ventricle * The right ventricle is grossly normal size. * There is moderate right ventricular hypertrophy. * The right ventricular systolic function is normal. Atria * The left atrium is mildly dilated. * The right atrium is moderately dilated. Mitral Valve * The mitral valve is grossly normal. * There is moderate mitral regurgitation. Tricuspid Valve * The tricuspid valve is not well visualized, but is grossly normal. * There is mild tricuspid regurgitation. * Right ventricular systolic pressure is elevated at 40-50mmHg. Aortic Valve * Functionally bicuspid * No hemodynamically significant valvular aortic stenosis. * Mild aortic regurgitation. Great Vessels * The aortic root is normal size. Pericardium/Pleural * There is no pericardial effusion. Great Vessels * The inferior vena cava is mildly dilated. MMode 2D Measurements and Calculations IVSd 2.3 cm IVSs 3.0 cm LVIDd 3.8 cm LVIDs 2.5 cm LVPWd 2.5 cm LVPWs 2.6 cm IVS/LVPW 0.95 FS 34.9 % EDV(Teich) 62.1 ml ESV(Teich) 21.8 ml EF(Teich) 65.0 % EDV(cubed) 55.0 ml ESV(cubed) 15.2 ml EF(cubed) 72.5 % % IVS thick 25.8 % % LVPW thick 4.2 % LV mass(C)d 490.2 grams LV mass(C)dI 229.5 grams/m\S\2 LV mass(C)s 416.4 grams LV mass(C)sI 194.9 grams/m\S\2 SV(Teich) 40.3 ml SI(Teich) 18.9 ml/m\S\2 SV(cubed) 39.9 ml SI(cubed) 18.7 ml/m\S\2 Ao root diam 3.5 cm Ao root area 9.7 cm\S\2 ACS 1.7 cm LA dimension 4.2 cm LA/Ao 1.2 LVAd ap4 27.9 cm\S\2 LVLd ap4 8.8 cm EDV(MOD-sp4) 74.2 ml EDV(sp4-el) 75.1 ml LVAs ap4 17.0 cm\S\2 LVLs ap4 8.1 cm ESV(MOD-sp4) 35.9 ml ESV(sp4-el) 30.4 ml EF(MOD-sp4) 51.7 % EF(sp4-el) 59.5 % LVAd ap2 29.0 cm\S\2 LVLd ap2 8.2 cm EDV(MOD-sp2) 87.2 ml EDV(sp2-el) 86.8 ml LVAs ap2 15.5 cm\S\2 LVLs ap2 7.0 cm ESV(MOD-sp2) 32.2 ml ESV(sp2-el) 29.4 ml EF(MOD-sp2) 63.0 % EF(sp2-el) 66.1 % LVLd %diff -7.43 % EDV(MOD-bp) 83.7 ml LVLs %diff -16.11 % ESV(MOD-bp) 36.5 ml EF(MOD-bp) 56.3 % SV(MOD-sp4) 38.4 ml SI(MOD-sp4) 18.0 ml/m\S\2 SV(MOD-sp2) 55.0 ml SI(MOD-sp2) 25.7 ml/m\S\2 SV(MOD-bp) 47.1 ml SI(MOD-bp) 22.1 ml/m\S\2 SV(sp4-el) 44.7 ml SI(sp4-el) 20.9 ml/m\S\2 SV(sp2-el) 57.4 ml SI(sp2-el) 26.9 ml/m\S\2 Doppler Measurements and Calculations MV E max venus 102.3 cm/sec MV A max venus 27.6 cm/sec MV E/A 3.7 MV dec time 0.20 sec Ao V2 max 105.3 cm/sec Ao max PG 4.4 mmHg Ao max PG (full) 1.7 mmHg AI max venus 307.4 cm/sec AI max PG 37.8 mmHg AI dec slope 181.5 cm/sec\S\2 AI P1/2t 496.0 msec LV V1 max PG 2.7 mmHg LV V1 max 82.0 cm/sec MR max venus 466.1 cm/sec MR max PG 86.9 mmHg MR mean venus 340.1 cm/sec MR mean PG 54.1 mmHg MR VTI 146.1 cm MR PISA 1.3 cm\S\2 MR PISA radius 0.45 cm PA V2 max 70.8 cm/sec PA max PG 2.0 mmHg TR max venus 294.3 cm/sec
--- NOTE | 2017-10-03 18:01 | Discharge Instructions ---
Discharge Instructions Date of Service Oct 03, 2017. Admission Reason for Admission: Chf, Elevated Troponin Discharge Discharge Diagnosis / Problem: CHF, elevated troponin Discharge Goals Goal(s): Decrease discomfort, Learn about illness, Diagnostic testing Activity Recommendations Activity Limitations: per Instructions/Follow-up section . Instructions / Follow-Up Instructions / Follow-Up You were admitted due to difficulty breathing. You were found to have mildly elevated heart enzymes -- this is likely due to your chronic heart failure. We gave you lasix intravenously here in the hospital to help get some fluid off of your lungs, and you responded well. Dr. Lobo saw you here in the hospital, and recommended that you increase your Toprol dose to 50 mg twice a day. Also, he would like to see you this week at the Heart Failure clinic to further assess a need for a water pill to help with fluid overload. His office will be calling you to schedule this. You also had intermittent left calf pain -- we checked a doppler ultrasound to rule out a blood clot in your leg. Your test came back normal. Please continue to do the stretching exercises I showed you to stretch out your calves , do these twice a day, before and after walking. Be well, A Khoa Current Hospital Diet Patient's current hospital diet: AHA Diet (Heart Healthy) Discharge Diet Recommended Diet: AHA Diet (Heart Healthy) Fluid Restriction: None Pending Studies Studies pending at discharge: no Medical Emergencies . Who to Call and When: Medical Emergencies: If at any time you feel your situation is an emergency, please call 911 immediately. . Non-Emergent Contact Non-Emergency issues call your: Primary Care Provider, Breakdown Man Call Non-Emergent contact if: your pain is unusual for you, your pain is concerning you . . "Provider Documentation" section prepared by Kaycee Couch. .
[2017-10-03 18:09] VITALS: BP 146/81; PULSE 71; TEMP 36.9; O2SAT 91
--- NOTE | 2017-10-03 19:20 | Discharge Summary ---
Discharge Summary Date of Service Oct 03, 2017. Discharge Summary Admission Date: Oct 02, 2017 at 22:15 Discharge Date: Oct 03, 2017 Discharge Disposition: Home Principal Diagnosis: LVH, diastolic heart failure Problems/Secondary Diagnoses: Past medical history PVCs Aortic regurgitation Left ventricular hypertrophy Hyperlipidemia Hypertension Mitral regurgitation Nephrolithiasis Thyroid goiter Past surgical history Appendectomy Rotator cuff repair Immunizations: Have You Had Influenza Vaccine: Yes Influenza Vaccine Date: May 04, 2008 History of Tetanus Vaccine?: No History of Pneumococcal: No History of Hepatitis B Vaccine: No Procedures: CHEST 2 VIEWS ROUTINE Chest X ray CLINICAL HISTORY: Shortness of breath COMPARISON STUDY: 06/13/2015 FINDINGS: The heart is enlarged. There is subtle subpleural septal edema. There are small pleural effusions. There is no lobar consolidation.[ IMPRESSION: Cardiomegaly and subtle interstitial edema. Small bilateral pleural effusions Electronically signed by: Sriram Dugan M.D. 10/02/2017 8:31 PM Dictated Date/Time: 10/02/2017 8:30 PM Consultations: Cardiology - Dr. Lobo Medication Reconciliation New Medications: Metoprolol Succ (Toprol Xl) (Toprol-Xl) 50 Mg Tabcr 1 TAB PO BID for 30 Days, #60 TABS Continued Medications: Diclofenac (Voltaren) 50 Mg Tabec 50 MG PO BID, TAB Lisinopril (Prinivil) 20 Mg Tab 20 MG PO QAM, TAB Ranitidine (Zantac) 150 Mg Tab 1 TAB PO BID for 30 Days, #60 TAB 3 Refills Rosuvastatin Calcium (Crestor) 10 Mg Tab 10 MG PO QPM, TAB Silodosin (Rapaflo) 8 Mg Cap 1 CAP PO QPM for 90 Days, CAP 3 Refills Discontinued Medications: Metoprolol Succ (Toprol Xl) (Toprol-Xl) 50 Mg Tabcr 50 MG PO QAM, #30 TAB Metoprolol Succ (Toprol Xl) (Toprol-Xl) 50 Mg Tabcr 25 MG PO PM Discharge Exam Pt describes a feeling that he is out of breath more than normal for him lately. Says he is probably being over cautious, but states that he's lost "several friends" lately. Says that he normally is very active, walks for 30 [address] in the mall twice a week, watches his diet. Follows cardiology for his "skipped beats". Later in the day complains of lower left calf pain/cramping to nurse. Denies chest pain, head aches, blurry vision, PND, orthopnea, leg swelling or weight gain. ROS See HPI for pertinent positives and negatives. Physical Exam GENERAL: Awake, alert, well-appearing, in no distress. EYES: Normal conjunctiva. Sclera non-icteric. NECK: FROM. No JVD. RESPIRATORY: Clear to auscultation. CARDIAC: Regular rate, normal rhythm. Extremities warm and well perfused. Pulses equal. ABDOMEN: Soft, non-distended. No tenderness to palpation. No rebound or guarding. No masses. LOWER EXTREMITIES: Calves are equal size bilaterally and non-tender. TRACE edema. No discoloration. NEURO: No motor deficits noted. SKIN: No rash or jaundice noted. Hospital Course Mr. Guillen is a 71 year old male here for dyspnea on exertion, and found to be in acute CHF exacerbation. Was seen by cardiology Dr. Lobo. Diuresed almost 4L today with IV lasix. Per Cardiology however home lasix dose not recommended at this time -- will follow up in Heart Failure clinic to assess if diuretic medication necessary. Elev cardiac biomarkers minimally elevated, given lack of ischemic symptoms, ischemic workup not pursued at this time. Pt should still undergo cardiac MRI in [place] as advised by cardiology, which is scheduled later this month. Regarding medications, the only change was to increase his Toprol to 50mg BID. Lasix on discharge deferred upon further management in heart failure clinic. All other home meds continued as above. Pt's leg pain -- we ruled out DVT with normal ultrasound doppler. Suggested that pt start stretching calves at home, showed him stretching exercises. Heart failure clinic will reach out to patient to schedule appointment. Total Time Spent: Greater than 30 minutes This includes examination of the patient, discharge planning, medication reconciliation, and communication with other providers. Discharge Instructions Please refer to the electronic Patient Visit Report (Discharge Instructions) for additional information. Additional Copies To Mendel Meyer M.D. Resident Tracking Resident Involvement: Resident Care Provided Care Provided: Adult Hospital Medicine Reviewed: Pt Seen/Exam by Me History no chest pain, no trouble with breathing Constitutional: denies: fever General Appearance: no apparent distress Respiratory: lungs clear, no respiratory distress Cardiovascular: regular rate, rhythm Neurologic/Psychiatric: alert, other (oriented to place and person) Skin Characteristics: warm/dry Assessment/Plan Resident Physician Supervision Note: I independently interviewed and examined the patient and verified the morris history and physical, reviewed labs and image studies, discussed the case with the resident Dr. Couch and agree with the findings and care plan. Time spent in discharge 35 min
[2017-10-03] MEDS ORDERED: ROSUVASTATIN CALCIUM 10 MG TAB PO SCH (21:00)
[2017-10-03] MEDS ORDERED: METOPROLOL SUCC 25MG EXT REL TAB PO SCH (21:00)
== END 2017-10-03 19:00 | disposition home or self-care (01) | DRG 293 ==
LOC: C.EDB 19:16 → C.2E 22:15 → ENRESERV 22:24
PROVIDERS: ADMIT Hospitalist; ATTEND Family Medicine
DX: I11.0 Hypertensive heart disease with heart failure (principal); I50.33 Acute on chronic diastolic (congestive) heart failure; I34.0 Nonrheumatic mitral (valve) insufficiency; N40.0 Benign prostatic hyperplasia without lower urinary tract symptoms; E78.5 Hyperlipidemia, unspecified; M79.605 Pain in left leg; Z79.899 Other long term (current) drug therapy

== ENCOUNTER 2017-10-15 08:40 | Emergency (ER) | payer BC, OTHER ==
[~2017-10-15] VITALS: Ht 188 cm; Wt 78.5 kg
[2017-10-15 08:45] VITALS: TEMP 36.8; Ht 188 cm; Wt 78.5 kg
[2017-10-15] MEDS ORDERED: METO50TA8 PO (09:13)
[2017-10-15 09:19] LABS: EOS % 0.4 %; EOS ABS # 0.03 K/uL (0-0.5); HEMATOCRIT 47.3 % (42-52); HEMOGLOBIN 15.8 g/dL (14.0-18.0); IG# 0.01 K/uL (0.00-0.02); LYMPH % 9.2 %; LYMPH ABS # 0.75 K/uL (1.2-3.4); MEAN CELL VOLUME 90.3 fL (80-100); MEAN CORPUSCULAR HEMOGLOBIN 30.2 pg (25-34); MEAN CORPUSCULAR HGB CONC 33.4 g/dl (32-36); MEAN PLATELET VOLUME 9.6 fL (7.4-10.4); MONO % 7.5 %; MONO ABS # 0.61 K/uL (0.11-0.59); NEUT % 82.8 %; NEUT ABS # 6.78 K/uL (1.4-6.5); PLATELET COUNT 204 K/uL (130-400); RED CELL DISTRIBUTION WIDTH CV 14.1 % (11.5-14.5); RED CELL DISTRIBUTION WIDTH SD 46.1 fL (36.4-46.3); WHITE BLOOD COUNT 8.18 K/uL (4.8-10.8)
--- NOTE | 2017-10-15 09:30 | DIAGNOSTIC IMAGING REPORT ---
CHEST 2 VIEWS ROUTINE CLINICAL HISTORY: SOB dyspnea COMPARISON STUDY: 10/02/2017 FINDINGS: Stable cardiomegaly. Diaphragms smooth. Lungs are currently clear. IMPRESSION: Moderate stable cardia megaly. The lungs are clear. The above report was generated using voice recognition software. It may contain grammatical, syntax or spelling errors. Electronically signed by: Patel Trevino M.D. 10/15/2017 9:29 AM Dictated Date/Time: 10/15/2017 9:28 AM
[2017-10-15 09:31] LABS: ALBUMIN 3.9 gm/dl (3.4-5.0); CALCIUM 9.2 mg/dl (8.5-10.1); CREATININE 1.01 mg/dl (0.60-1.40); POTASSIUM 4.3 mmol/L (3.5-5.1)
[2017-10-15 09:46] LABS: CKMB 2.2 ng/ml (0.5-3.6); TOTAL PROTEIN 7.1 gm/dl (6.4-8.2)
--- NOTE | 2017-10-15 10:24 | EMERGENCY ROOM VISIT NOTE ---
ED Visit Note First contact with patient: 10:19 I have personally seen and evaluated the patient with the physician family and divorce legal assistant. I agree with the diagnostic/management decisions and have personally been involved in these decisions and agree with the diagnosis.
[2017-10-15] MEDS ORDERED: FUROSEMIDE INJ 20 MG in SYRINGE 0 ML IV ONE (10:30)
[2017-10-15] MEDS ORDERED: FURO20TA PO (12:11)
[2017-10-15 12:17] VITALS: BP 133/77; PULSE 61; O2SAT 97
--- NOTE | 2017-10-20 19:29 | EMERGENCY ROOM VISIT NOTE ---
History First contact with patient: 08:49 Chief Complaint: SHORTNESS OF BREATH Stated Complaint: TROUBLE BREATHING Nursing Triage Summary: pt to the ED with c/o SOB, no resp distress noted. no le edema pt states he was here recently with fluid on his lungs and heart and was admitted History of Present Illness The patient is a 71 year old white male who presents to the Emergency Room with his , with complaints of shortness of breath that became worse this morning. He was recently admitted October 02 and for similar symptoms. He was diagnosed with some pulmonary edema and was diuresed with Lasix. He felt better and was discharged. He just saw his scouring train operator chief yesterday as an outpatient. He denies any chest pain. He is unsure if the shortness of breath is related to some anxiety. No nausea or vomiting. No other cold symptoms. He denies any significant increase in the swelling in his legs. He has been weighing himself daily and has not noticed a significant increase. No other treatment. Review of Systems REVIEW OF SYSTEM: HEENT: No dizziness, visual problems, hearing loss, or tinnitus. There is no difficulty swallowing and no oral lesions are present. LYMPH: No adenopathy. PULMONARY: No cough, sputum production or hemoptysis. CARDIOVASCULAR: No chest pain, palpitations, or peripheral edema. GASTROINTESTINAL: No diarrhea, constipation, nausea, vomiting, or abdominal pain. GENITOURINARY: No dysuria, frequency, urgency or nocturia. NEUROLOGIC: No weakness, muscle tenderness, epilepsy or history of neurological problems. MUSCULOSKELETAL: No history of joint tenderness/swelling. No history of arthritis or arthralgias. SKIN: No rashes or lesions. PSYCHIATRIC: No history of depression or mental illness. ENDOCRINE: No history of diabetes, thyroid disorders, or abnormal hair growth. Past Medical/Surgical History Medical Problems: (1) Hypertension Surgical Problems: (1) History of appendectomy Family History Diabetes mellitus Heart disease Hypertension Kidney stones Social History Smoking Status: Never Smoker Smokeless Tobacco Use: No Alcohol Use: none Drug Use: none Marital Status: Housing Status: lives with family Occupation Status: employed Current/Historical Medications Scheduled Diclofenac (Voltaren), 50 MG PO BID Furosemide (Lasix), 1 TAB PO DAILY Lisinopril (Prinivil), 20 MG PO QAM Metoprolol Succ (Toprol Xl) (Toprol-Xl), 50 MG PO BID Rosuvastatin Calcium (Crestor), 10 MG PO QPM Silodosin (Rapaflo), 1 CAP PO QPM Allergies Coded Allergies: No Known Allergies (Verified , 12/18/15) Physical Exam Vital Signs Date Time Temp Pulse Resp B/P (MAP) Pulse Ox O2 Delivery O2 Flow Rate FiO2 10/15/17 12:17 61 16 133/77 97 Room Air 10/15/17 10:30 58 18 129/75 99 10/15/17 09:00 69 10/15/17 08:45 98 Room Air 10/15/17 08:45 36.8 67 20 142/95 98 Room Air Physical Exam General: Well-developed, well-nourished, elderly white male, in no acute distress. Laying on the bed. Alert and oriented. He does not seem short of breath. Skin: Warm and dry with good turgor. No rashes or lesions. No ecchymosis or erythema. The patient is not diaphoretic. No abrasions. HEENT: Normocephalic atraumatic. Eyes PERRLA, EOMI. No conjunctiva or scleral injection. Nares patent bilaterally without turbinate enlargement. No significant drainage. No epistaxis. Oropharynx without erythema or exudate. Uvula midline, oral mucosa moist. No lesions present. Heart: Heart RRR. No MGR. Peripheral pulses are 2+. Lungs: Lungs are clear to auscultation. No crackles rhonchi or wheezing. Good air movement. The patient is able to take a deep breath. Abdomen: Abdomen was inspected, auscultated, and palpated. Bowel sounds present x 4. Soft, nontender to palpation. No hepato-splenomegaly. No masses noted. No rebound. Musculoskeletal: Gross motor function of the upper and lower extremities is intact and unremarkable. He does have 1+ peripheral edema in both lower extremities, left greater than right. Neurologic: Gross sensation is intact across the lower extremities by soft touch. Medical Decision & Procedures ER Provider Diagnostic Interpretation: Chest x-ray obtained today was reviewed by me and read by radiology. Moderate stable cardiomegaly. No abnormality identified in the lungs. EKG obtained today shows a normal sinus rhythm with rate of 65. Nonspecific T- wave abnormality. No acute ST changes. Reviewed by me as well as Dr. Dillon. Laboratory Results 10/15/17 09:00 Red Blood Count 5.24, Mean Corpuscular Volume 90.3, Mean Corpuscular Hemoglobin 30.2, Mean Corpuscular Hemoglobin Concent 33.4, Mean Platelet Volume 9.6, Neutrophils (%) (Auto) 82.8, Lymphocytes (%) (Auto) 9.2, Monocytes (%) (Auto) 7.5, Eosinophils (%) (Auto) 0.4, Basophils (%) (Auto) 0.0, Neutrophils # (Auto) 6.78, Lymphocytes # (Auto) 0.75, Monocytes # (Auto) 0.61, Eosinophils # (Auto) 0.03, Basophils # (Auto) 0.00 10/15/17 09:00 Test 10/15/17 09:00 White Blood Count 8.18 K/uL (4.8-10.8) Red Blood Count 5.24 M/uL (4.7-6.1) Hemoglobin 15.8 g/dL (14.0-18.0) Hematocrit 47.3 % (42-52) Mean Corpuscular Volume 90.3 fL (80-100) Mean Corpuscular Hemoglobin 30.2 pg (25-34) Mean Corpuscular Hemoglobin Concent 33.4 g/dl (32-36) Platelet Count 204 K/uL (130-400) Mean Platelet Volume 9.6 fL (7.4-10.4) Neutrophils (%) (Auto) 82.8 % Lymphocytes (%) (Auto) 9.2 % Monocytes (%) (Auto) 7.5 % Eosinophils (%) (Auto) 0.4 % Basophils (%) (Auto) 0.0 % Neutrophils # (Auto) 6.78 K/uL (1.4-6.5) Lymphocytes # (Auto) 0.75 K/uL (1.2-3.4) Monocytes # (Auto) 0.61 K/uL (0.11-0.59) Eosinophils # (Auto) 0.03 K/uL (0-0.5) Basophils # (Auto) 0.00 K/uL (0-0.2) RDW Standard Deviation 46.1 fL (36.4-46.3) RDW Coefficient of Variation 14.1 % (11.5-14.5) Immature Granulocyte % (Auto) 0.1 % Immature Granulocyte # (Auto) 0.01 K/uL (0.00-0.02) Anion Gap 8.0 mmol/L (3-11) Est Creatinine Clear Calc Drug Dose 73.4 ml/min Estimated GFR () 85.7 Estimated GFR (Non- 74.0 BUN/Creatinine Ratio 19.5 (10-20) Calcium Level 9.2 mg/dl (8.5-10.1) Total Bilirubin 3.1 mg/dl (0.2-1) Aspartate Amino Transf (AST/SGOT) 18 U/L (15-37) Alanine Aminotransferase (ALT/SGPT) 21 U/L (12-78) Alkaline Phosphatase 62 U/L (45-117) Total Creatine Kinase 63 U/L (39-308) Creatine Kinase MB 2.2 ng/ml (0.5-3.6) Creatine Kinase MB Ratio 3.5 (0-3.0) Troponin I 0.046 ng/ml (0-0.045) Pro-B-Type Natriuretic Peptide 2284 pg/ml (0-900) Total Protein 7.1 gm/dl (6.4-8.2) Albumin 3.9 gm/dl (3.4-5.0) Globulin 3.2 gm/dl (2.5-4.0) Albumin/Globulin Ratio 1.2 (0.9-2) CBC, chem panel, BNP, CK/CK-MB, and troponin were obtained. Troponin is slightly elevated at 0.046. BNP is also elevated at 2284. Medications Administered Medications (Trade) Dose Ordered Sig/[place] Route Start Time Stop Time Status Last Admin Dose Admin Furosemide 20 mg/ Syringe 2 ml @ 4 mls/min ONE ONCE IV 10/15/17 10:30 10/15/17 10:31 DC 10/15/17 10:30 4 MLS/MIN Lasix 20 mg IV ED Course Patient was educated regarding today's findings. Conservative care measures were discussed. He was evaluated in B3. IV was established. Labs were obtained. These were unremarkable except for his mildly elevated troponin and BNP. Chest x-ray and EKG were obtained. They were also unremarkable. No evidence for failure. I did speak with his scouring train operator chief , by phone. The elevated troponin was thought to be chronic and residual, likely related to his cardiomegaly. IV dose of Lasix was recommended and if the shortness of breath improved, he was felt to be stable for discharge. Patient was given Lasix 20 mg IV and did have significant diuresis. He had no further shortness of breath and felt well enough for discharge. Follow-up with his scouring train operator chief and PCP this week. Return to the ED for any acute changes. Patient was given a prescription for Lasix 20 mg p.o. daily for the next week. He understands that he may ultimately be on this daily. He will need to have his potassium rechecked later this week. He may temporarily add potassium rich foods, such as bananas, to his diet. Patient was seen in conjunction with Dr. Dillon, who also evaluated the patient and concurred with today's diagnosis and treatment plan. Medical Decision Possibility of pneumonia, PE, CHF, viral illness, orthopnea, dyspnea on exertion , arrhythmia, and anxiety were considered among others. [place] Drug Monitoring Program Search Results: no issues identified Impression Primary Impression: Dyspnea Departure Information Dispostion Home / Self-Care Condition FAIR Prescriptions Furosemide (LASIX) 20 Mg Tab 1 TAB PO DAILY for 10 Days, #10 TAB 1 Refill Prov: Gilson Jennings,P.A. 10/15/17 Forms HOME CARE DOCUMENTATION FORM, IMPORTANT VISIT INFORMATION Patient Instructions My [facility] [employer] Additional Instructions Follow-up with Dr. Lobo's office this week-call on Tuesday for an appointment Start Lasix 1 pill daily Add a potassium rich food, such as a banana, to your diet daily Return to the ED for any acute worsening of symptoms Continue to weigh yourself Problem Qualifiers Primary Impression: Dyspnea Dyspnea type: shortness of breath Qualified Codes: R06.02 - Shortness of breath
== END 2017-10-15 12:27 | disposition home or self-care (01) ==
LOC: C.EDB 08:41
DX: R06.02 Shortness of breath (principal); I10 Essential (primary) hypertension; Z83.3 Family history of diabetes mellitus; Z82.49 Family history of ischemic heart disease and other diseases of the circulatory system; Z84.1 Family history of disorders of kidney and ureter; Z79.899 Other long term (current) drug therapy

== ENCOUNTER → 2017-10-24 | Outpatient (CLI) | payer BC ==
[~2017-10-24] MED LIST changes: +FURO20TA PO; -RANI150T85 PO
[2017-10-24 15:16] LABS: BLOOD UREA NITROGEN 18 mg/dl (7-18); CALCIUM 9.1 mg/dl (8.5-10.1); CARBON DIOXIDE 27 mmol/L (21-32); CREATININE 1.06 mg/dl (0.60-1.40); GLUCOSE 80 mg/dl (70-99); POTASSIUM 4.4 mmol/L (3.5-5.1); SODIUM 139 mmol/L (136-145)
== END | disposition home or self-care (01) ==
LOC: C.LAB1850 13:55
PROVIDERS: ATTEND Internal Medicine Clinical Cardiac Electrophysiology
DX: I51.9 Heart disease, unspecified (principal)

== ENCOUNTER → 2017-10-26 | Outpatient (CLI) | payer BC ==
[~2017-10-26] MED LIST changes: +GADAVIST IV PRN
--- NOTE | 2017-10-26 18:26 | DIAGNOSTIC IMAGING REPORT ---
MRI OF THE BRAIN COMBO CLINICAL HISTORY: Short-term memory loss. Urinary incontinence. COMPARISON STUDY: No priors. TECHNIQUE: MRI of the brain was performed utilizing various T1 and T2-weighted sequences in the axial, sagittal, and coronal planes. Contrast-enhanced sequences were acquired following the administration of 8 cc of Gadavist. FINDINGS: Brain parenchyma: There are age-related involutional changes noting mild to moderate subcortical and periventricular microangiopathic disease. There is no hemorrhage or mass effect. There is no restricted diffusion to suggest acute ischemia. No enhancing mass lesion is identified on the postcontrast images. Myers-white matter differentiation is preserved. No extra-axial fluid collection is seen. The cerebellar tonsils are normal in configuration. Ventricles, sulci, and cisterns: Prominent secondary to involutional change. Pituitary and sella: Partially empty sella is incidentally noted. Intracranial vasculature: Normal flow voids are maintained at the skull base. Orbits: The bony orbits are grossly intact. Orbital contents are normal in appearance. Sinuses and mastoids: Trace fluid is seen in the right maxillary antrum. The remaining paranasal sinuses are clear. The mastoid air cells are well pneumatized. Calvarium: Unremarkable. Cervical cord: Partially visualized cervical spinal cord is normal in morphology and signal intensity. IMPRESSION: Senescent change as above with no acute intracranial abnormality. Electronically signed by: Wes Zarco M.D. 10/26/2017 6:25 PM Dictated Date/Time: 10/26/2017 6:22 PM
== END | disposition home or self-care (01) ==
LOC: C.MRI 16:52
PROVIDERS: ATTEND Physician Assistant Medical
DX: R41.3 Other amnesia (principal)

== ENCOUNTER → 2017-11-29 | Outpatient (CLI) | payer BC ==
[~2017-11-29] VITALS: Ht 188 cm; Wt 86.1 kg
[~2017-11-29] MED LIST changes: -GADAVIST IV PRN
[2017-11-29 15:25] VITALS: BP 129/74; PULSE 69; Ht 188 cm; Wt 86.1 kg
== END | disposition home or self-care (01) ==
LOC: C.NEUR 13:40
PROVIDERS: ATTEND Internal Medicine Pulmonary Disease
DX: G47.30 Sleep apnea, unspecified (principal); I51.7 Cardiomegaly; I51.9 Heart disease, unspecified

== ENCOUNTER 2019-12-13 04:58 | Inpatient (IN) ==
--- NOTE | 2019-12-13 05:13 | Emergency Department Note ---
Impression & Plan Closed head injury, Dizziness, Ambulatory dysfunction ED Provider Note Name: DALILA MUHAMMAD Age: 73 Sex: M Arrives Via: Ambulance Informant: Patient, , EMS ED Provider: Boogie Fritz MD Chief Complaint: Fall and Dizziness Impression: Closed Head Injury Dizziness Ambulatory Dysfunction Medical Decision Makin yr old male with Parkinson, mild dementia, along with multiple other medical issues arrives after falling again last night, this time hitting head and feeling dizzy after. Initial evaluation he is already feeling better. The patient is however clearly quite weak and notes this has been progressing for some time now to the point where she can not even get him in and out of the house. He has chronic back pain though denies changes nor worsening of it. No clear evidence that this is infectious in origin, stroke, no acs. EKG shows sins luís which is more pronounced if not for PVCs. This may need further monitor as is new compared to previous EKGs. His labs were unremarkable. After discussion with him and it is clear at present time he is not capable of living at home. Previously did well at rehab thus will discuss with hospitalist about bringing in, further work-up and possible placement. Prior Medical Record and Triage/Nursing Notes reviewed by Me Additional history obtained from Differentials: Infection, dehydration, metabolic abnormality, hypo/hyperglycemia, electrolyte disturbance, anemia, hypoxia, cardiac sources, intracerebral event, toxicologic, neurologic, as well as other pathologies. Vital Signs: reviewed and remarkable for mild luís Interventions: saline lock Labs:Reviewed and remarkable for no significant abnormalities Imaging:X ray results are stated below per my interpretation: Chest: 1 view: No infiltrate, no effusion, normal cardiac border. Pelvis Xray: 1 View: arthritic changes no acute fracture Radiologist interpretation reviewed by me: CT head cervical, no acute findings EKG:Per My Interpretation: Indication Weakness: Sinus luís 53 bpm, qtc 492. PVC, no stemi. Compared to EKG 01/20/18 rate is slower and there are PVCs. Cardiac/Tele Monitoring: Cardiac Monitoring: An Order was placed for continuous cardiac monitoring. The monitor shows a rate of 60 with a normal sinus rhythm. Consults:Dr Minh JOHNSON Hospitalist Plan: Disposition:Hospitalization. Condition: Fair Blood pressure:Normal.No Referral necessary Prescriptions:none PDMP: na History of Present Illness:73 / M arrives for evaluation following fall and dizziness. Patient notes his alarm went off and he reached to hit it when he fell out of bed. He notes he struck his head. Believes that after head injury dizziness started. He notes feeling lightheaded with headache. Denies spinning. Notes low back pain but states chronic and unchanged. He says he had trouble getting up due to weakness. No vision changes, neck pain, cp, sob, extremity pain, hip pain, loss bowel/bladder, focal weakness, fevers, chills, nausea, vomiting, abdominal pain, nor other symptoms. No interventions prior to arrival. Movement makes headache worse, rest makes better. Is on no blood thinners nor aspirin. No history of head injuries, brain surgery. He has history of Parkinson's notes increased stuttering walk and increasing falls/near falls over the last few weeks. She notes he is too weak to even get in and out of their house. Uses a Cane but that has not been effective at keeping him from falling. She feels he is a danger if at home. Notes previously doing well at rehab a few years ago. Notes PCP informed them that he likely has Parkinson's. ROS: See above HPI for pertinent positives & negatives. A total of 10 systems reviewed and were otherwise negative. Past Medical History:Parkinsons, HTN, DLP, Enlarged prostate Past Surgical History:Appendectomy, Shoulder Surgery Family History:DMII, Dementia, CAD, HTN Social History:Lives with , no drugs/etoh/smoking, retired Home Medications:Sinemet, diclofenax, furosemide, lisinopril, metoprolol, rosuvastatin, silodosin Allergies:Zantac Vitals:Blood Pressure: 152/87, Pulse 58, RR 16, T 36.5C, O2 98% on RA Physical Exam: GENERAL: Patient is elderly appearing and in minimal distress. EYES: No scleral icterus, unremarkable pupils. ENT: Mucous membranes moist, no nasal congestion. NECK: No masses appreciated, nomeningismus, trachea is midline. RESPIRATORY: No dyspnea. Clear to auscultation and equal bilaterally. No wheeze, no rhonchi. CARDIOVASCULAR: Regular rate and rhythm.No murmurs, rubs, gallops appreciated. GASTROINTESTINAL: Abdomen soft, non-tender, no peritonitis.Bowel sounds positive.No masses appreciated. BACK: No midline tenderness, no CVA tenderness EXTREMITIES: Normal motion all extremities, no cyanosis, no edema. NEUROLOGIC: Parkinsonian movements and tremor. Alert and oriented, no acute motor or sensory deficits, no focal weakness, cranial nerves grossly intact. SKIN: No rash, no jaundice, no diaphoresis. PSYCH: Appropriate, mild dementia GCS: 15 ED Course: Times/Reassessments: multiple, stable, declines pain meds Boogie Fritz MD Past Med/Surg History Surgical History (Updated 03/14/19 @ 09:35 by Frank Salguero) History of surgical removal of lesion S/P appendectomy S/P rotator cuff repair Family History (Updated 03/14/19 @ 09:40 by Frank Salguero) Father Type 2 diabetes mellitus Dementia Mother Dementia Sister Acute myocardial infarction Diabetes Unknown Heart disease Hypertension Social History (Updated 03/14/19 @ 09:41 by Frank Salguero) Preferred Language: Turkish Communication Ability: Effective Pt Escort Required: No Beliefs That Will Affect Care: None Current Living Situation: Spouse Other Information That Helps Us Care for You: No Feels Safe at Home: Yes Safety Concerns: Feels Safe At This Time Smoking Status: Never smoker Do You Dip or Chew Tobacco: No ; Second Hand Exposure: No ; Tobacco Cessation Education Requested by Patient: No Hx Alcohol Use: No Hx Substance Use: No Allergies Allergies Allergy/AdvReac Type Severity Reaction Status Date / Time ranitidine Allergy Intermediate ITCHY HIVES Verified 12/13/19 06:17 Home Meds Home Medications Medication Instructions Recorded Confirmed furosemide 20 mg PO DAILY 12/13/19 12/13/19 Previous Rx's Medication Instructions Recorded silodosin 8 mg capsule 8 mg PO DAILY #90 cap 02/13/19 diclofenac sodium 50 mg 50 mg PO BID #180 tab 05/22/19 tablet,delayed release lisinopril 5 mg tablet 5 mg PO DAILY #90 tab 08/22/19 rosuvastatin 10 mg tablet 10 mg PO DAILY #30 tab 10/09/19 metoprolol succinate 50 mg 50 mg PO DAILY #90 tab 10/29/19 tablet,extended release 24 hr Results & Data (ED) Vital Signs Vital Signs - 24 hr 12/13/19 05:03 12/13/19 05:06 12/13/19 05:08 Temperature 36.5 C Temperature Source Oral Pulse Rate 59 L 55 L 58 L Pulse Rate [Right Finger] Pulse Rate from SpO2 Sensor 58 L 55 L Respiratory Rate 16 16 16 Respiratory Depth Normal Blood Pressure 152/87 H 152/87 H Blood Pressure [Right Arm] Blood Pressure Mean 107 108 Blood Pressure Mean [Right Arm] Blood Pressure Position Lying Blood Pressure Position [Right Arm] Pulse Oximetry 97 97 98 Oxygen Delivery Method Room Air Sepsis Recent Fever Within 48 Hours No Sepsis New/Unexplained Change in Mental Status No Sepsis Action Taken by Nursing No Action Required 12/13/19 05:36 12/13/19 05:38 12/13/19 06:00 Temperature Temperature Source Pulse Rate 74 53 L 53 L Pulse Rate [Right Finger] Pulse Rate from SpO2 Sensor Respiratory Rate 17 21 Respiratory Depth Blood Pressure 129/70 Blood Pressure [Right Arm] Blood Pressure Mean 80 Blood Pressure Mean [Right Arm] Blood Pressure Position Blood Pressure Position [Right Arm] Pulse Oximetry Oxygen Delivery Method Sepsis Recent Fever Within 48 Hours Sepsis New/Unexplained Change in Mental Status Sepsis Action Taken by Nursing 12/13/19 06:08 12/13/19 06:30 12/13/19 07:00 Temperature Temperature Source Pulse Rate 74 64 Pulse Rate [Right Finger] 53 L Pulse Rate from SpO2 Sensor Respiratory Rate 16 15 Respiratory Depth Normal Blood Pressure Blood Pressure [Right Arm] 125/70 Blood Pressure Mean Blood Pressure Mean [Right Arm] 88 Blood Pressure Position Blood Pressure Position [Right Arm] Lying Pulse Oximetry 97 Oxygen Delivery Method Room Air Sepsis Recent Fever Within 48 Hours Sepsis New/Unexplained Change in Mental Status Sepsis Action Taken by Nursing 12/13/19 07:07 12/13/19 07:30 12/13/19 08:00 Temperature Temperature Source Pulse Rate 57 L 53 L 52 L Pulse Rate [Right Finger] 64 Pulse Rate from SpO2 Sensor Respiratory Rate 15 Respiratory Depth Normal Blood Pressure 130/73 Blood Pressure [Right Arm] 130/73 Blood Pressure Mean 97 Blood Pressure Mean [Right Arm] 92 Blood Pressure Position Blood Pressure Position [Right Arm] Lying Pulse Oximetry 99 Oxygen Delivery Method Room Air Sepsis Recent Fever Within 48 Hours Sepsis New/Unexplained Change in Mental Status Sepsis Action Taken by Nursing Laboratory Data Result diagrams: 12/13/19 05:16 12/13/19 05:16 Lab Results 12/13/19 12/13/19 12/13/19 Range/Units 05:16 05:16 05:16 WBC 9.28 (4.8-10.8) K/uL RBC 5.08 (4.7-6.1) M/uL Hgb 16.1 (14.0-18.0) g/dL Hct 47.6 (42-52) % MCV 93.7 (80-100) fL MCH 31.7 (25-34) pg MCHC 33.8 (32-36) g/dL RDW Std Deviation 45.8 (36.4-46.3) fL RDW Coeff of Ni 13.4 (11.5-14.5) % Plt Count 180 (130-400) K/uL MPV 10.3 (7.4-10.4) fL Immature Gran % (Auto) 0.1 % Neut % (Auto) 82.2 % Lymph % (Auto) 9.5 % [place] % (Auto) 6.8 % Eos % (Auto) 1.2 % Baso % (Auto) 0.2 % Immature Gran # (Auto) 0.01 (0.00-0.02) K/uL Neut # (Auto) 7.63 H (1.4-6.5) K/uL Lymph # (Auto) 0.88 L (1.2-3.4) K/uL [place] # (Auto) 0.63 H (0.11-0.59) K/uL Eos # (Auto) 0.11 (0-0.5) K/uL Baso # (Auto) 0.02 (0-0.2) K/uL PT 11.1 (9.0-12.0) Seconds INR 1.1 (0.9-1.1) Sodium 141 (136-145) mmol/L Potassium 3.8 (3.5-5.1) mmol/L Chloride 107 (98-107) mmol/L Carbon Dioxide 27 (21-32) mmol/L Anion Gap 7.0 (3-11) BUN 19 H (7-18) mg/dl Creatinine 1.10 (0.6-1.4) mg/dl Est Cr Clr Drug Dosing 62.6 ml/min Est GFR ( Amer) 76.2 Est GFR (Non-Af Amer) 65.8 BUN/Creatinine Ratio 17.3 (10-20) Glucose 117 H (70-99) mg/dl Calcium 8.8 (8.5-10.1) mg/dl Magnesium 2.1 (1.8-2.4) mg/dl Total Bilirubin 2.1 H (0.2-1) mg/dl Direct Bilirubin 0.4 H (0-0.2) mg/dl AST 18 (15-37) U/L ALT 27 (12-78) U/L Alkaline Phosphatase 71 (45-117) U/L Total Creatine Kinase 43 (39-308) U/L Troponin I 0.044 (0-0.045) ng/ml Total Protein 7.2 (6.4-8.2) gm/dl Albumin 3.8 (3.4-5.0) gm/dl Administered Medications Diclofenac Sodium (Voltaren) 50 mg PO BID POPEYE Stop: 01/12/20 10:34 Last Admin: 12/13/19 20:06 Dose: 50 mg Documented by: [id number] Admin: 12/13/19 11:17 Dose: Not Given Documented by: [id number] Furosemide (Lasix) 20 mg PO DAILY POPEYE Stop: 01/12/20 10:34 Last Admin: 12/13/19 11:17 Dose: 20 mg Documented by: [id number] Lisinopril (Zestril) 5 mg PO DAILY POPEYE Stop: 01/12/20 10:34 Last Admin: 12/13/19 11:16 Dose: 5 mg Documented by: [id number] Metoprolol Succinate (Toprol Xl) 50 mg PO DAILY POPEYE Stop: 01/12/20 10:34 Last Admin: 12/13/19 11:17 Dose: 50 mg Documented by: [id number] Miscellaneous (Order Awaiting Action) 1 ea N/A QS POPEYE Stop: 01/12/20 15:59 Last Admin: 12/14/19 00:00 Dose: Not Given Documented by: [id number] Admin: 12/13/19 16:00 Dose: Not Given Documented by: [id number] Rosuvastatin Calcium (Crestor) 10 mg PO DAILY POPEYE Stop: 01/12/20 10:34 Last Admin: 12/13/19 11:17 Dose: 10 mg Documented by: [id number] Discharge Plan Visit Data *Final* Discharge Date/Time: 12/13/19 10:12 Chief Complaint: Fall Stated Complaint: FALL/DIZZY ED Provider: Boogie Fritz Discharge Problem: Closed head injury, Dizziness, Ambulatory dysfunction Patient Disposition: Admitted As Inpatient Discharge Instructions Interventions: ED Discharge Assessment Last Done: 12/13/19 10:12 Discharge Problem: Closed head injury Qualifiers: Encounter type: initial encounter Qualified Code(s): S09.90XA - Unspecified injury of head, initial encounter
[2019-12-13 05:26] LABS: Basophils # (auto) 0.02 K/uL (0-0.2); Basophils % (auto) 0.2 %; Eosinophils # (auto) 0.11 K/uL (0-0.5); Eosinophils % (auto) 1.2 %; Hematocrit (blood only) 47.6 % (42-52); Hemoglobin 16.1 g/dL (14.0-18.0); Immature Granulocytes # (auto) 0.01 K/uL (0.00-0.02); Immature Granulocytes % (auto) 0.1 %; Lymphocytes # (auto) 0.88 K/uL (1.2-3.4); Lymphocytes % (auto) 9.5 %; Mean Corpuscular Hemoglobin 31.7 pg (25-34); Mean Corpuscular Hgb Conc 33.8 g/dL (32-36); Mean Corpuscular Volume 93.7 fL (80-100); Mean Platelet Volume 10.3 fL (7.4-10.4); Monocytes # (auto) 0.63 K/uL (0.11-0.59); Monocytes % (auto) 6.8 %; Neutrophils # (auto) 7.63 K/uL (1.4-6.5); Neutrophils % (auto) 82.2 %; Platelet Count 180 K/uL (130-400); RDW Coefficient of Variation 13.4 % (11.5-14.5); RDW Standard Deviation 45.8 fL (36.4-46.3); Red Blood Count 5.08 M/uL (4.7-6.1); White Blood Count 9.28 K/uL (4.8-10.8)
[2019-12-13 05:36] LABS: INR 1.1 (0.9-1.1); Prothrombin Time 11.1 Seconds (9.0-12.0)
[2019-12-13 06:10] LABS: Albumin Level 3.8 gm/dl (3.4-5.0); BUN Creatinine Ratio 17.3 (10-20); Bilirubin Direct 0.4 mg/dl (0-0.2); Calcium 8.8 mg/dl (8.5-10.1); Creatinine Clr Calc Pharmacy 62.6 ml/min; Est GFR (African American) 76.2; Est GFR (Non-African American) 65.8; Magnesium 2.1 mg/dl (1.8-2.4); Potassium 3.8 mmol/L (3.5-5.1)
[2019-12-13 06:15] LABS: Bilirubin,Total 2.1 mg/dl (0.2-1); Total Protein 7.2 gm/dl (6.4-8.2); Troponin I 0.044 ng/ml (0-0.045)
--- NOTE | 2019-12-13 06:42 | XRay Report ---
XR pelvis 1-2V routine CLINICAL HISTORY: fall, trauma COMPARISON: Pelvis radiograph December 26, 2017. FINDINGS: The sacroiliac joints and symphysis pubis are intact. There is no acute fracture within th e pelvis or hips. No suspicious osseous lesion is noted. Joint spaces are preserved. There is mild os teophytosis. IMPRESSION: No acute fracture within the pelvis or hips. ACT 112: Negative or not required by law. Electronically signed by: Hugh Scales M.D. 12/13/2019 6:41 AM
--- NOTE | 2019-12-13 06:47 | CT Scan Report ---
CT OF THE HEAD WITHOUT CONTRAST CLINICAL HISTORY: Fall, head injury COMPARISON STUDY: Head CT January 04, 2018. TECHNIQUE: Helical axial images of the head were obtained without IV contrast. Automated exposure con trol was utilized for the study. A dose lowering technique was utilized adhering to the principles o f ALARA. FINDINGS: No acute intracranial hemorrhage, midline shift or mass effect is present. The ventricular system is stable. Basilar cisterns are patent. There are no extra-axial collections. White matter hyp odensity suggests small vessel disease. There are no findings to suggest acute dural sinus process or acute territorial infarct. There is no calvarial fracture. Right mastoid fluid is noted. Right sphen oid sinus is partially opacified with wall thickening. This is unchanged and likely chronic. IMPRESSION: 1. No acute intracranial findings. 2. No calvarial fracture. 3. Partially opacified right mastoid air cells. ACT 112: Negative or not required by law. Electronically signed by: Hugh Scales M.D. 12/13/2019 6:46 AM
--- NOTE | 2019-12-13 06:49 | XRay Report ---
XR chest 1V portable CLINICAL HISTORY: Fall, head injury, dizzy COMPARISON STUDY: Chest radiograph and chest CT January 20, 2018. FINDINGS: Lung volumes are normal. Lungs are clear. There is no pneumothorax or pleural effusion. Mod erate cardiomegaly is unchanged. Mediastinal contours are normal. There is no evidence for pulmonary edema. IMPRESSION: No acute cardiopulmonary findings. Stable cardiomegaly. ACT 112: Negative or not required by law. Electronically signed by: Hugh Scales M.D. 12/13/2019 6:48 AM
--- NOTE | 2019-12-13 06:56 | CT Scan Report ---
CT OF THE CERVICAL SPINE WITHOUT CONTRAST CLINICAL HISTORY: fall, head injury COMPARISON STUDY: Cervical spine CT December 26, 2017. TECHNIQUE: Helical axial images of the cervical spine were obtained without IV contrast. Sagittal a nd coronal reconstructions were viewed. Automated exposure control was utilized for the study. A do se lowering technique was utilized adhering to the principles of ALARA. FINDINGS: Alignment of the cervical spine is anatomic. Vertebral body heights are maintained. No acut e cervical spine fracture or subluxation is present. There is no prevertebral edema. Facet joints are intact. Note is made of moderate multilevel disc space narrowing, osteophytosis and facet arthrosis . Degenerative changes at the C1-C2 articulation are noted. IMPRESSION: No acute cervical spine fracture or subluxation. ACT 112: Negative or not required by law. Electronically signed by: Hugh Scales M.D. 12/13/2019 6:55 AM
--- NOTE | 2019-12-13 08:00 | History & Physical Report ---
Date of Service December 13, 2019 Assessment & Plan (1) Ambulatory dysfunction: -Admit to [facility] with telemetry -PT/OT consults -Fall precautions -Checking speech eval with history of Parkinson's disease for swallow dysfunction (2) Hypertension: -Continue antihypertensives starting this morning including lisinopril 5 mg daily, metoprolol 50 mg daily, Lasix 20 mg daily (3) Hyperlipidemia: -Continue rosuvastatin 10 mg daily (4) Hypertrophic cardiomegaly: (5) Diastolic dysfunction: -Last echo was conducted on 10/03/2017 showing severe concentric LVH, left ventricular systolic function low normal 55- 60%, moderate RVH, mild aortic regurg, moderate mitral regurg, elevated RV systolic pressure at 40 to 50 mmHg. 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 (11) Parkinsonism: -PT/OT as above -Speech eval -Lives at home with , has steps to get in and out of the house which have been difficult for him (12) Sleep apnea: -Continue CPAP HS (13) DVT prophylaxis: - teds, scds CODE: Full code Dispo: From home, likely to remain in the hospital x 2 days and discharge to inpatient rehab History of Present Illness Primary Care Provider: Mendel Meyer MD This is a 73 yo M with PMHx of HTn, HLD, aortic insufficiency, diastolic CHF, mitral regurg, 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 Pt presented with increased weakness over the past 3 weeks with his . He reports having fallen 3 times within the past few weeks. Patient reports that he just feels weak, has a shuffling gait, and is worse with his left foot and left arm compared to the right. Denies any LOC or hitting of the head on his most recent fall which occurred early this morning. Typically he uses a cane for ambulatory assistance, but was not using it this morning. He did not take any of his morning medications. Patient denies any other acute complaints. He participated in PT/OT at [facility] about 2 years ago for similar issues. reports that he may be diagnosed with parkinsons disease, as he has a lot of the features including the shuffling gait and fine tremor. He denies any issues with swallowing or speaking, no respiratory complaints. Patient has had difficulty with steps in his home in the last few weeks. Allergies Allergy/AdvReac Type Severity Reaction Status Date / Time ranitidine Allergy Intermediate ITCHY HIVES Verified 12/13/19 06:17 Home Medications Home Medications Medication Instructions Recorded Confirmed Type silodosin 8 mg capsule 8 mg PO DAILY #90 cap 02/13/19 12/13/19 Rx diclofenac sodium 50 mg 50 mg PO BID #180 tab 05/22/19 12/13/19 Rx tablet,delayed release lisinopril 5 mg tablet 5 mg PO DAILY #90 tab 08/22/19 12/13/19 Rx rosuvastatin 10 mg tablet 10 mg PO DAILY #30 tab 10/09/19 12/13/19 Rx metoprolol succinate 50 mg 50 mg PO DAILY #90 tab 10/29/19 12/13/19 Rx tablet,extended release 24 hr furosemide 20 mg PO DAILY 12/13/19 12/13/19 History Past Med/Surg History Surgical History (Updated 03/14/19 @ 09:35 by Frank Salguero) History of surgical removal of lesion S/P appendectomy S/P rotator cuff repair Family History (Updated 03/14/19 @ 09:40 by Frank Salguero) Father Type 2 diabetes mellitus Dementia Mother Dementia Sister Acute myocardial infarction Diabetes Unknown Heart disease Hypertension Social History (Updated 03/14/19 @ 09:41 by Frank Salguero) Preferred Language: Slovak Communication Ability: Effective Truck [employer] Required: No Beliefs That Will Affect Care: None Current Living Situation: Spouse Other Information That Helps Us Care for You: No Feels Safe at Home: Yes Safety Concerns: Feels Safe At This Time Smoking Status: Never smoker Do You Dip or Chew Tobacco: No ; Second Hand Exposure: No ; Tobacco Cessation Education Requested by Patient: No Hx Alcohol Use: No Hx Substance Use: No Review of Systems Review of Systems: Constitutional: No fever, sweats or chills Eyes: No diplopia, no worsening or blurred vision ENT: normal hearing, no trouble swallowing Respiratory: No cough, sputum, dyspnea at rest or on exertion Cardiovascular: No chest pain, tightness or palpitations Abdomen: No pain, nausea, vomiting, diarrhea or constipation Musculoskeletal: No joint pain, calf pain, swelling Neurologic: As per HPI. No numbness or tingling. Psychiatric: No anxiety or depression Skin: No rash or itch Physical Exam Physical Exam: General: awake, alert, no apparent distress, lying flat in bed Head: Normocephalic, atraumatic ENT: PERRL, EOMI, no pharyngeal exudate, mucous membranes moist Chest: Clear to auscultation, on room air, no adventitious breath sounds Cardiac: + Sinus bradycardia,, no murmur, no JVD, normal peripheral pulses, good capillary refill Abdominal: NABS x 4 quadrants, soft, nontender to palpation, no rebound, guarding or tenderness Extremities: Normal inspection, no peripheral edema or erythema, calfs nontender to palpation Psych: Normal mood and affect Neuro: AAO x 3, strength intact bilaterally and rated 4/5, left leg and left arm are weaker compared to the right, no gross motor deficits, speech is clear, no peripheral sensory deficits Skin: no rash or erythema Results & Data Results & Data ([facility]) Vital Signs (Past 12 Hours) Vital Signs Temp Pulse Pulse Resp BP BP Pulse Ox 12/13/19 07:07 54 L 16 130/73 95 12/13/19 06:08 53 L 16 125/70 97 12/13/19 05:08 36.5 C 58 L 16 152/[address] OF THE CERVICAL SPINE WITHOUT CONTRAST CLINICAL HISTORY: fall, head injury COMPARISON STUDY: Cervical spine CT December 26, 2017. TECHNIQUE: Helical axial images of the cervical spine were obtained without IV contrast. Sagittal and coronal reconstructions were viewed. Automated exposure control was utilized for the study. A dose lowering technique was utilized adhering to the principles of ALARA. FINDINGS: Alignment of the cervical spine is anatomic. Vertebral body heights are maintained. No acute cervical spine fracture or subluxation is present. There is no prevertebral edema. Facet joints are intact. Note is made of moderate multilevel disc space narrowing, osteophytosis and facet arthrosis. Degenerative changes at the C1-C2 articulation are noted. IMPRESSION: No acute cervical spine fracture or subluxation. XR chest 1V portable CLINICAL HISTORY: Fall, head injury, dizzy COMPARISON STUDY: Chest radiograph and chest CT January 20, 2018. FINDINGS: Lung volumes are normal. Lungs are clear. There is no pneumothorax or pleural effusion. Moderate cardiomegaly is unchanged. Mediastinal contours are n ormal. There is no evidence for pulmonary edema. IMPRESSION: No acute cardiopulmonary findings. Stable cardiomegaly. CT OF THE HEAD WITHOUT CONTRAST CLINICAL HISTORY: Fall, head injury COMPARISON STUDY: Head CT January 04, 2018. TECHNIQUE: Helical axial images of the head were obtained without IV contrast. Automated exposure control was utilized for the study. A dose lowering technique was utilized adhering to the principles of ALARA. FINDINGS: No acute intracranial hemorrhage, midline shift or mass effect is present. The ventricular system is stable. Basilar cisterns are patent. There are no extra-axial collections. White matter hypodensity suggests small vessel disease. There are no findings to suggest acute dural sinus process or acute territorial infarct. There is no calvarial fracture. Right mastoid fluid is noted. Right sphenoid sinus is partially opacified with wall thickening. This is unchanged and likely chronic. IMPRESSION: 1. No acute intracranial findings. 2. No calvarial fracture. 3. Partially opacified right mastoid air cells. XR pelvis 1-2V routine CLINICAL HISTORY: fall, trauma COMPARISON: Pelvis radiograph December 26, 2017. FINDINGS: The sacroiliac joints and symphysis pubis are intact. There is no acute fracture within the pelvis or hips. No suspicious osseous lesion is noted. Joint spaces are preserved. There is mild osteophytosis. IMPRESSION: No acute fracture within the pelvis or hips. ECG Additional Comments: 8 13-DEC-2019 05:07:26 [facility]-EDSTAT ROUTINE RETRIEVAL Poor data quality, interpretation may be adversely affected Sinus bradycardia with occasional Premature ventricular complexes Left axis deviation Pulmonary disease pattern Nonspecific ST and T wave abnormality Prolonged QT Abnormal ECG When compared with ECG of 20-JAN-2018 14:42, QRS axis Shifted left QT has shortened 25mm/s 10mm/mV 150Hz 9.0.9 12SL 241 JOSE ARMANDO: 10 Referred by: REFERRED SELF Unconfirmed Vent. rate 57 BPM MA interval 198 ms QRS duration 88 ms QT/QTc 506/492 ms P-R-T axes 103 -40 130 Code Status & VTE Plan Code Status Full code-discussed with the patient and his at bedside Supervising Physician Co-Signing Physician Notes 73 m with h/o htn , cardiac amyloidosis, diastolic heart failure, valvular heart disease, thyroid disease and goiter. Likely due to Parkinsons disease the pt is having increasing falls and is no longer safe at home. I interviewed and examined the patient. Discussed with Sheree HERNÁNDEZ and agree with findings and plan as documented in the note. Any exceptions or clarifications are listed here:- none pt has c/o being stiff and sore cardiac exam bradycardic with systolic murmurs will have PT/OT, continue treatment of chronic problems. evaluate for secondary causes of decreased function. Documented By: Ori Riley MD PG Care Time/CCT Total # of Minutes Spent Total Time Spent with Patient: Total time spent is greater than 50% in coordination of care (as documented) at patient's floor/unit and/or counseling patient: Coding Level of Care Code 85392 Initial Inpt Care Lvl 3 Diagnoses Ambulatory dysfunction R26.2 Hypertension I10 Hyperlipidemia E78.5 Hypertrophic cardiomegaly I51.7 Diastolic dysfunction I51.89 Cardiac amyloidosis E85.4; I43 Bradycardia R00.1 Aortic insufficiency I35.1 Mitral regurgitation I34.0 Nontoxic multinodular goiter E04.2 Parkinsonism G20 Sleep apnea G47.30 DVT prophylaxis Z29.9
[2019-12-13] MEDS ORDERED: ACETAMINOPHEN 325 MG TAB PO PRN (10:35)
[2019-12-13] MEDS ORDERED: ONDANSETRON INJ 2 MG/ML 2 ML VIAL IV PRN (10:35)
[2019-12-13] MEDS: lisinopriL 5 MG TAB PO SCH (11:16)
[2019-12-13] MEDS: FUROSEMIDE 20 MG TAB PO SCH (11:17)
[2019-12-13] MEDS: ROSUVASTATIN CALCIUM 10 MG TAB PO SCH (11:17)
[2019-12-13] MEDS: METOPROLOL SUCC 50MG EXT REL TAB PO SCH (11:17)
[2019-12-13] MEDS: DICLOFENAC SODIUM 25 MG TABDR PO SCH ×2 (11:17→20:06)
--- NOTE | 2019-12-13 16:06 | Electrocardiogram Report ---
Test Reason : Blood Pressure : / mmHG Vent. Rate : 057 BPM Atrial Rate : 057 BPM P-R Int : 198 ms QRS Dur : 088 ms QT Int : 506 ms P-R-T Axes : 103 -40 130 degrees QTc Int : 492 ms Poor data quality, interpretation may be adversely affected Sinus bradycardia with occasional Premature ventricular complexes Left axis deviation Nonspecific ST and T wave abnormality Abnormal ECG When compared with ECG of 20-JAN-2018 14:42, QRS axis Shifted left Confirmed by Mendel Lobo ([id number]) on 12/13/2019 4:06:39 PM Referred By: REFERRED SELF Confirmed By:Alexx Lobo
[2019-12-13 19:14] LABS: Appearance Urine Clear (Clear); Bilirubin Urine Negative (Negative); Blood Urine Negative (Negative); Color Urine Yellow; Glucose Urine UA Negative (Negative); Ketones Urine Negative (Negative); Leukocyte Esterase Urine Negative (Negative); Nitrite Urine Negative (Negative); Protein Urine Negative (Negative); Specific Gravity Urine 1.024 (1.000-1.030); Urobilinogen Urine Negative (Negative)
[2019-12-14 07:17] LABS: Hematocrit (blood only) 48.3 % (42-52); Hemoglobin 16.4 g/dL (14.0-18.0); Mean Corpuscular Hemoglobin 31.7 pg (25-34); Mean Corpuscular Volume 93.2 fL (80-100); Mean Platelet Volume 10.5 fL (7.4-10.4); Platelet Count 193 K/uL (130-400); RDW Coefficient of Variation 13.5 % (11.5-14.5); RDW Standard Deviation 45.9 fL (36.4-46.3); Red Blood Count 5.18 M/uL (4.7-6.1); White Blood Count 11.14 K/uL (4.8-10.8)
[2019-12-14 07:45] LABS: Albumin Level 3.7 gm/dl (3.4-5.0); BUN Creatinine Ratio 16.4 (10-20); Calcium 9.1 mg/dl (8.5-10.1); Creatinine Clr Calc Pharmacy 66.2 ml/min; Est GFR (African American) 81.6; Est GFR (Non-African American) 70.4; Potassium 3.8 mmol/L (3.5-5.1)
[2019-12-14 07:50] LABS: Albumin Globulin Ratio 1.2 (0.9-2); Bilirubin,Total 3.2 mg/dl (0.2-1); Total Protein 6.7 gm/dl (6.4-8.2)
--- NOTE | 2019-12-14 08:00 | Hospitalist Progress Note ---
Date of Service December 14, 2019 Assessment & Plan (1) Ambulatory dysfunction: no apparent injury with recent falling Weakness and gait instability associate with progressive Parkinson's disease - speech eval with history of Parkinson's disease for swallow dysfunction (2) Hypertension: -Continue lisinopril 5 mg daily, metoprolol 50 mg daily, Lasix 20 mg daily- care to avoid hypotension As mentioned adding an aspirin to his regiment which is both cardiovascular and cerebrovascular risk protection (3) Hyperlipidemia: -Continue rosuvastatin 10 mg daily (4) Hypertrophic cardiomegaly: (5) Diastolic dysfunction: -Last echo was conducted on 10/03/2017 showing severe concentric LVH, left ventricular systolic function low normal 55- 60%, moderate RVH, mild aortic regurg, moderate mitral regurg, elevated RV systolic pressure at 40 to 50 mmHg. 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 (11) Parkinsonism: -PT/OT as above -Speech eval -Lives at home with , has steps to get in and out of the house which have been difficult for him weakness and falls due to progressive parkinsons disease (12) Sleep apnea: -Continue CPAP HS (13) DVT prophylaxis: - janell lopez CODE: Full code Dispo: From home, likely to remain in the hospital x 2 days and discharge to inpatient rehab Admission and Anticipated Discharge Date Admission Date: December 13, 2019 Subjective Initially there was some concern this morning that the patient may have had some leaning towards the left evaluate the patient did have complete appreciation of that but there is no good time course to when this started subsequently the patient was sent for stat CT scan and given aspirin. There is no acute stroke seen later in the morning I believe the patient is back to his usual state. I believe this was part of his Parkinson's manifestations and not an acute stroke therefore no stroke alert was called Review of Systems Review of Systems: Moderate distress gait instability masslike bases rigidity all consistent with his Parkinson's diagnosis no complaints of headache, blurry or double vision persistent issues with speech and swallowing no chest pain, pressure or palpitations no shortness of breath, cough or wheezes no abdominal pain, nausea or vomiting, diarrhea or constipation no dysuria, hematuria or frequency no focal joint pain or swelling no back pain, CVA tenderness or radicular pain no bruising, bleeding or rashes I do not appreciate any facial drooping some minor left arm weakness, exhibited on confrontational exam Physical Exam Physical Exam: The patient appeared chronically ill Vital signs as documented. Head exam is normocephalic atraumatic no scleral icterus I see no facial drooping Neck is without JVD, thyromegaly, or carotid bruits. Lungs are clear to auscultation, no focal loss of breath sounds Cardiac exam, Rhythm is regular.. No murmurs, rubs or gallops. Abdominal exam reveals normal bowel sounds, soft non tender, no masses Extremities are nonedematous and both pedal pulses are normal. Neurologic exam is alert and oriented x2, follows commands,, minor left arm weakness Skin is without bruises or rashes Results & Data Results & Data ([facility]) Vital Signs (Past 12 Hours) Vital Signs Temp Pulse Pulse Resp BP BP Pulse Ox 12/14/19 07:31 98.2 F 65 18 144/79 H 94 12/14/19 04:48 97.9 F 62 18 108/58 L 92 12/14/19 00:27 60 12/13/19 23:01 97.7 F 59 L 18 104/65 93 PG Care Time/CCT Total # of Minutes Spent Total Time Spent with Patient: Total time spent is greater than 50% in coordination of care (as documented) at patient's floor/unit and/or counseling patient: Coding Level of Care Code 34936 Subseq Hosp Care Lvl 3 Diagnoses Ambulatory dysfunction R26.2 Hypertension I10 Hyperlipidemia E78.5 Hypertrophic cardiomegaly I51.7 Diastolic dysfunction I51.89 Cardiac amyloidosis E85.4; I43 Bradycardia R00.1 Aortic insufficiency I35.1 Mitral regurgitation I34.0 Nontoxic multinodular goiter E04.2 Parkinsonism G20 Sleep apnea G47.30 DVT prophylaxis Z29.9
[2019-12-14] MEDS: ROSUVASTATIN CALCIUM 10 MG TAB PO SCH (08:38)
[2019-12-14] MEDS: METOPROLOL SUCC 50MG EXT REL TAB PO SCH (08:38)
[2019-12-14] MEDS: DICLOFENAC SODIUM 25 MG TABDR PO SCH ×2 (08:38→20:52)
[2019-12-14] MEDS: lisinopriL 5 MG TAB PO SCH (08:38)
[2019-12-14] MEDS: FUROSEMIDE 20 MG TAB PO SCH (08:38)
[2019-12-14] MEDS ORDERED: ASPIRIN 81 MG CHEW PO STA (09:07)
--- NOTE | 2019-12-14 10:05 | CT Scan Report ---
CT OF THE HEAD WITHOUT CONTRAST CLINICAL HISTORY: Evaluate for stroke. COMPARISON STUDY: MRI the brain December 13, 2019. CT DOSE: 694.47 mGycm TECHNIQUE: Helical axial images of the head were obtained without IV contrast. Automated exposure con trol was utilized for the study. A dose lowering technique was utilized adhering to the principles o f ALARA. FINDINGS: No acute intracranial hemorrhage, midline shift or mass effect is present. Ventricular syst em is stable. Basilar cisterns are patent. No extra-axial collections are present. A bandlike density overlying the anterior right frontal lobe is artifactual. White matter hypodensity suggests small ve ssel disease. There are no findings to suggest acute dural sinus thrombosis or acute territorial infa rct. Right mastoid air cells are partially opacified. This is unchanged. There is no calvarial fractu re. Air-fluid levels mucosal thickening within the right sphenoid sinus is unchanged. This is likely chronic. IMPRESSION: 1. No acute intracranial findings. 2. No change in a right mastoid effusion. ACT 112: Negative or not required by law. Electronically signed by: Hugh Scales M.D. 12/14/2019 10:04 AM
[2019-12-15 07:25] LABS: Hemoglobin 16.3 g/dL (14.0-18.0); Mean Corpuscular Hemoglobin 31.5 pg (25-34); Mean Corpuscular Hgb Conc 33.3 g/dL (32-36); Mean Corpuscular Volume 94.6 fL (80-100); Mean Platelet Volume 10.6 fL (7.4-10.4); Platelet Count 188 K/uL (130-400); RDW Coefficient of Variation 13.8 % (11.5-14.5); RDW Standard Deviation 47.6 fL (36.4-46.3); Red Blood Count 5.18 M/uL (4.7-6.1); White Blood Count 9.87 K/uL (4.8-10.8)
[2019-12-15 07:53] LABS: Albumin Level 3.6 gm/dl (3.4-5.0); BUN Creatinine Ratio 17.5 (10-20); Calcium 8.9 mg/dl (8.5-10.1); Creatinine Clr Calc Pharmacy 61.1 ml/min; Est GFR (African American) 75.4; Est GFR (Non-African American) 65.1; Potassium 3.9 mmol/L (3.5-5.1)
[2019-12-15 07:55] LABS: Bilirubin,Total 2.8 mg/dl (0.2-1); Globulin 3.5 gm/dl (2.5-4.0); Total Protein 7.1 gm/dl (6.4-8.2)
[2019-12-15] MEDS: lisinopriL 5 MG TAB PO SCH (09:08)
[2019-12-15] MEDS: ROSUVASTATIN CALCIUM 10 MG TAB PO SCH (09:08)
[2019-12-15] MEDS: FUROSEMIDE 20 MG TAB PO SCH (09:08)
[2019-12-15] MEDS: DICLOFENAC SODIUM 25 MG TABDR PO SCH ×2 (09:08→21:11)
[2019-12-15] MEDS: METOPROLOL SUCC 50MG EXT REL TAB PO SCH (09:10)
--- NOTE | 2019-12-15 14:00 | Hospitalist Progress Note ---
Date of Service December 15, 2019 Assessment & Plan (1) Ambulatory dysfunction: no apparent injury with recent falling Weakness and gait instability associate with progressive Parkinson's disease - speech eval with history of Parkinson's disease for swallow dysfunction Physical therapy feels he is a 2 person max assist at this time (2) Hypertension: -Continue lisinopril 5 mg daily, metoprolol 50 mg daily, Lasix 20 mg daily- care to avoid hypotension As mentioned adding an aspirin to his regiment which is both cardiovascular and cerebrovascular risk protection Urgent CT scan performed 12/13 is without stroke I believe his left arm movement issues are musculoskeletal (3) Hyperlipidemia: -Continue rosuvastatin 10 mg daily (4) Hypertrophic cardiomegaly: (5) Diastolic dysfunction: -Last echo was conducted on 10/03/2017 showing severe concentric LVH, left ventricular systolic function low normal 55- 60%, moderate RVH, mild aortic regurg, moderate mitral regurg, elevated RV systolic pressure at 40 to 50 mmHg. 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 (11) Parkinsonism: -PT/OT patient is requiring significant assistance discussion with family regarding subacute rehab -Speech eval, there is no definite aspiration seen speech therapy recommended an easy to chew diet with aspiration prevention procedures followed -Lives at home with , has steps to get in and out of the house which have been difficult for him weakness and falls due to progressive parkinsons disease (12) Sleep apnea: -Continue CPAP HS (13) DVT prophylaxis: - teds, scds CODE: Full code Dispo: From home, likely to remain in the hospital x 2 days and discharge to inpatient rehab Admission and Anticipated Discharge Date Admission Date: December 13, 2019 Subjective this pt is still pleasantly confused, a two person max assist. no defined encephalopathy source identified. Review of Systems Review of Systems: Mild distress and deconditioning post weakness no headache, blurry or double vision Baseline speech and swallowing issues no chest pain, pressure or palpitations no shortness of breath, cough or wheezes no abdominal pain, nausea or vomiting, diarrhea or constipation no dysuria, hematuria or frequency no focal joint pain or swelling Complains of stiffness in his back no bruising, bleeding or rashes no focal signs of weakness or numbness is very stiff and difficulty with rigidity Physical Exam Physical Exam: The patient appeared well nourished and normally developed. He appears much older than his stated age obviously suffering from parkinsonism Vital signs as documented. Head exam is normocephalic atraumatic no scleral icterus Neck is without JVD, thyromegaly, or carotid bruits. Lungs are clear to auscultation, no focal loss of breath sounds Cardiac exam, Rhythm is regular.. No murmurs, rubs or gallops. Abdominal exam reveals normal bowel sounds, soft non tender, no masses Extremities are nonedematous and both pedal pulses are normal. Neurologic exam is alert and orientedx2, he does have some weakness to his left upper arm otherwise has some rigidity throughout Results & Data Results & Data ([facility]) Vital Signs (Past 12 Hours) Vital Signs Temp Pulse Pulse Resp BP BP Pulse Ox 12/15/19 11:01 97.7 F 58 L 18 117/75 92 12/15/19 08:00 52 L 12/15/19 07:39 97.3 F L 57 L 18 120/74 94 12/15/19 04:00 98.2 F 54 L 18 113/69 92 PG Care Time/CCT Total # of Minutes Spent Total Time Spent with Patient: Total time spent is greater than 50% in coordination of care (as documented) at patient's floor/unit and/or counseling patient: Coding Level of Care Code 55212 Subseq Hosp Care Lvl 2 Diagnoses Ambulatory dysfunction R26.2 Hypertension I10 Hyperlipidemia E78.5 Hypertrophic cardiomegaly I51.7 Diastolic dysfunction I51.89 Cardiac amyloidosis E85.4; I43 Bradycardia R00.1 Aortic insufficiency I35.1 Mitral regurgitation I34.0 Nontoxic multinodular goiter E04.2 Parkinsonism G20 Sleep apnea G47.30 DVT prophylaxis Z29.9
[2019-12-16 06:18] LABS: Hematocrit (blood only) 45.7 % (42-52); Hemoglobin 15.3 g/dL (14.0-18.0); Mean Corpuscular Hemoglobin 31.7 pg (25-34); Mean Corpuscular Hgb Conc 33.5 g/dL (32-36); Mean Corpuscular Volume 94.6 fL (80-100); Mean Platelet Volume 10.8 fL (7.4-10.4); Platelet Count 189 K/uL (130-400); RDW Coefficient of Variation 13.6 % (11.5-14.5); RDW Standard Deviation 46.9 fL (36.4-46.3); Red Blood Count 4.83 M/uL (4.7-6.1); White Blood Count 9.36 K/uL (4.8-10.8)
[2019-12-16 06:48] LABS: Albumin Level 3.4 gm/dl (3.4-5.0); BUN Creatinine Ratio 24.8 (10-20); Calcium 8.9 mg/dl (8.5-10.1); Creatinine Clr Calc Pharmacy 60.1 ml/min; Est GFR (African American) 73.8; Est GFR (Non-African American) 63.7; Potassium 4.1 mmol/L (3.5-5.1)
[2019-12-16 06:50] LABS: Bilirubin,Total 2.4 mg/dl (0.2-1); Globulin 3.4 gm/dl (2.5-4.0); Total Protein 6.8 gm/dl (6.4-8.2)
[2019-12-16] MEDS: ROSUVASTATIN CALCIUM 10 MG TAB PO SCH (09:00)
[2019-12-16] MEDS: DICLOFENAC SODIUM 25 MG TABDR PO SCH ×2 (09:00→20:35)
[2019-12-16] MEDS: FUROSEMIDE 20 MG TAB PO SCH (09:00)
[2019-12-16] MEDS: METOPROLOL SUCC 50MG EXT REL TAB PO SCH (09:00)
[2019-12-16] MEDS: lisinopriL 5 MG TAB PO SCH (09:01)
--- NOTE | 2019-12-16 09:27 | Neurology Consultation ---
Date of Consultation December 16, 2019 Assessment & Plan (1) Parkinsonism: (2) Dementia: This patient has chronic, progressive dementia and parkinsonism that began over 5 years ago. His neurodegenerative condition was initially characterized by progressive decline in memory function, later followed by rigidity, bradykinesia, tremor, and ambulatory dysfunction. He does not have an obvious resting tremor, however. He has a history of intolerance to donepezil. His parkinsonism was felt to be unresponsive to Sinemet in the past. He may have dementia with Lewy bodies or possibly levodopa resistant atypical Parkinson's disease. The patient does exhibit significant left-sided rigidity which is likely related to his parkinsonism. His ambulatory function has declined significantly over the past few weeks and I am unable to exclude a subacute stroke in spite of the [address]. I would recommend completion of the brain MRI if possible to exclude an acute to subacute stroke. I would also recommend another trial of Sinemet. I would start with one half of a 25/100 mg tablet taken 3 times per day. I would not recommend another trial of a cholinesterase inhibitor to address this patient's dementia at this time. Monitor patient for delirium and/or hallucinations that may complicate dementia. History of Present Illness Reason for Consultation: Possible Parkinson's disease Requesting Physician: Ori Riley MD Attending Physician: Ori Riley MD History of Present Illness The patient is a 73-year-old male with a history of dementia and parkinsonism, former patient of Dr. Mathias. His condition began over 5 years ago and was initially characterized by persistent, progressive decline in cognitive functioning, subsequently followed by signs and symptoms of parkinsonism including bradykinesia, tremor, and ambulatory dysfunction. His dementia was felt to be of moderate severity 2 years ago. He has a history of intolerance to donepezil due to diarrhea. His parkinsonism was felt to be unresponsive to Sinemet previously. He is currently not taking medication for either dementia or parkinsonism. I reviewed the images pertaining to a brain MRI completed in October 2017. Per my review there is significant generalized atrophy and chronic periventricular and subcortical cerebrovascular disease. No imaging findings suggestive of normal pressure hydrocephalus. The patient presented to the emergency department 3 days ago after a fall complicated by minor head injury followed by headache and dizziness. The patient is an unreliable historian. He is aware that he fell at home but otherwise is unable to relay specific details or provide a coherent history. He does admit that he has chronic difficulty with balance and has been using a cane. He currently denies headache, dizziness or vertigo. His had reported to the emergency department physician a stuttering type walk as well as increasing falls and near falls over the past few weeks. He is also been noted to have more difficulty with motor control of the left arm and leg as compared to the right. A CT of the head completed at the time of presentation on December 13, 2019 revealed atrophy and chronic periventricular white matter disease, no hemorrhage. A follow-up CT of the head completed December 13 was unchanged. I reviewed the images pertaining to the studies. As above, neurology has been consulted in the context of this current hospitalization for further assistance regarding his diagnosis of parkinsonism versus Parkinson's disease and for assistance in his management. There has been some concern regarding his significant ambulatory dysfunction, requiring 2 person assist as well as his poor motor control to the left side and whether or not his left-sided symptoms are related to his diagnosis of Parkinson's or perhaps a more recent stroke. The latter is potentially felt to be less likely due to his unrevealing head CT results recently. He does have some cardiac risk factors including hypertension and hyperlipidemia. Additional details as below. Allergies Allergy/AdvReac Type Severity Reaction Status Date / Time ranitidine Allergy Intermediate ITCHY HIVES Verified 12/13/19 06:17 Home Medications Home Medications Medication Instructions Recorded Confirmed Type silodosin 8 mg capsule 8 mg PO DAILY #90 cap 02/13/19 12/13/19 Rx diclofenac sodium 50 mg 50 mg PO BID #180 tab 05/22/19 12/13/19 Rx tablet,delayed release lisinopril 5 mg tablet 5 mg PO DAILY #90 tab 08/22/19 12/13/19 Rx rosuvastatin 10 mg tablet 10 mg PO DAILY #30 tab 10/09/19 12/13/19 Rx metoprolol succinate 50 mg 50 mg PO DAILY #90 tab 10/29/19 12/13/19 Rx tablet,extended release 24 hr furosemide 20 mg PO DAILY 12/13/19 12/13/19 History Patient History Surgical History History of surgical removal of lesion S/P appendectomy S/P rotator cuff repair Family History Father Type 2 diabetes mellitus Dementia Mother Dementia Sister Acute myocardial infarction Diabetes Unknown Heart disease Hypertension Social History Preferred Language: Russian Communication Ability: Impaired Signals Intelligence Analysis Manager Required: No Beliefs That Will Affect Care: None Current Living Situation: Spouse Other Information That Helps Us Care for You: No Feels Safe at Home: Yes Safety Concerns: Feels Safe At This Time Smoking Status: Never smoker Do You Dip or Chew Tobacco: No ; Second Hand Exposure: No ; Tobacco Cessation Education Requested by Patient: No Hx Alcohol Use: No Hx Substance Use: No Review of Systems Review of Systems: Unobtainable due to cognitive status Exam (Neuro) Constitutional: well developed and well nourished Eyes: PERRL, normal accommodation and EOM intact bilaterally; no fundoscopic abnormality and no papilledema Cardiovascular: Vessels: normal carotid upstroke; no carotid bruit Neurologic: Oriented to:: Person; negative Place and Time Memory: Remote Intact; negative Short Term Intact Attention: negative Span Intact and Concentration Intact Language: Naming Objects and Repeating Phrases Speech Fluency: Slowed Fund of Knowledge: Past History and Vocabulary; negative Current Events Cranial Nerves: Normal II (Visual bray full to confrontation. Visual acuity normal.), III, IV, (Pupils equal round react to light and accommodation, eye movements normal.), V (Facial sensation intact), VII (There is no facial droop or weakness.), VIII (Hearing intact.), IX, X (Palate elevates to midline.), XI (Shoulder shrug intact.) and XII (Tongue protrudes to midline.) Motor Strength: Normal Lower Extremities and Normal Upper Extremities Rigidity: Rigidity Laterality: Left Muscle Bulk/Involuntary Movements: negative Muscle Atrophy, Rest Tremor (Arm) and Head Tremor Sensation: Light Touch Intact, Pain/Temperature Intact, Vibration Intact and Proprioception Intact Coordination: Finger-Nose Abnormal Laterality: Left and Heel-Salmon Abnormal Laterality: Bilateral Deep Tendon Reflexes: Rt Triceps: 2+, Lt Triceps: 2+, Rt Biceps: 2+, Lt Biceps: 2+, Rt Brachioradialis: 2+, Lt Brachioradialis: 2+, Rt Patellar: 2+, Lt Patellar: 2+, Rt Ankle: 1+ and Lt Ankle: 1+ Special Tests: negative Babinski Present Details: Unable to evaluate gait in the context of patient's current medical condition, requires 2 person assist. Results & Data ([facility]) Vital Signs (Past 12 Hours) Vital Signs Temp Pulse Pulse Resp BP BP Pulse Ox 12/16/19 08:56 69 12/16/19 07:23 36.5 C 58 L 18 130/74 93 12/16/19 04:00 36.4 C L 55 L 20 136/71 97 12/15/19 23:41 36.3 C L 102 H 20 103/68 99 12/15/19 23:00 36.6 C 56 L 20 106/65 96 Laboratory Results WBC 9.36, hemoglobin 15.3, hematocrit 45.7, platelet count 189, sodium 145, potassium 4.1, BUN 28, creatinine 1.13, glucose 100, AST 17, ALT 25, a lipid panel obtained in February 2019 revealed triglycerides of 112, cholesterol 124, VLDL 22, HDL [address] of the head completed December 13, 2019 was negative for hemorrhage or acute process. There is chronic small vessel ischemic disease. I reviewed the images as well as the radiologist interpretation of this test. A CT of the cervical spine completed December 13, 2019 was negative for acute fracture or subluxation. I reviewed the images as well as the radiologist interpretation of this test. A CT of the head completed December 14, 2019 was negative for hemorrhage or acute process. Again seen were changes consistent with chronic small vessel ischemic disease. I reviewed the images as well as the radiologist's interpretation of this test. Brain MRI completed in October 2017 is as described in the history of present illness. I reviewed the images pertaining to this test. An electrocardiogram completed December 13, 2019 reveals sinus bradycardia with occasional PVCs. An echocardiogram completed in September 2017 reveals severe concentric left ventricular hypertrophy with low normal left ventricular systolic function, mild dilatation of the left atria, moderate dilatation of the right atria was noted as well. Coding Level of Care Code 86403 Initial Inpt Care Lvl 3 Diagnoses Parkinsonism G20 Dementia F03.90
[2019-12-16] MEDS ORDERED: GADOBUTROL 30ML VIAL IV PRN (12:36)
--- NOTE | 2019-12-16 12:51 | Magnetic Resonance Report ---
MRI OF THE BRAIN WITHOUT AND WITH IV CONTRAST CLINICAL HISTORY: parkinsonism, dementia, r/o stroke COMPARISON STUDY: MRI of the brain October 26, 2017. Head CT December 14, 2019. TECHNIQUE: Utilizing a 1.5 Patricia magnet and dedicated coil, multiplanar, multiecho imaging of the br ain was performed pre and postcontrast administration. IV administration of 8 mL of Gadavist contras t was uneventful. FINDINGS: There are no foci of restricted diffusion to suggest acute infarct. No acute intracranial h emorrhage, midline shift or mass effect is present. Moderate to marked atrophy is noted. This account s for ventricular dilatation. The basilar cisterns are patent. There are no extra axial collections. Flow-voids for the major intracranial vessels are present. White matter T2 hyperintense foci are bernardo lar to MRI of October 26, 2017. An 8 mm extra-axial enhancing lesion overlying the left frontal lobe on axial image 26 of 30 is unchanged. Right mastoid effusion is noted. Air-fluid level within the right sphenoid sinus is again noted. IMPRESSION: 1. No acute intracranial findings. 2. Moderate to marked atrophy. 3. Right mastoid effusion and air-fluid level within the right sphenoid sinus. 4. Tiny meningioma overlying the left frontal lobe, unchanged. ACT 112: Negative or not required by law. Electronically signed by: Hugh Scales M.D. 12/16/2019 12:50 PM
[2019-12-16] MEDS: CARBIDOPA/LEVODOPA 25/100MG TAB PO SCH ×2 (13:50→20:35)
--- NOTE | 2019-12-16 14:34 | Hospitalist Progress Note ---
Date of Service December 16, 2019 Assessment & Plan (1) Ambulatory dysfunction: no apparent injury with recent falling Weakness and gait instability associate with progressive Parkinson's disease did have neurological consult 12/15, did order mri of brain which was negative for stroke, and started on sinemet trial - speech eval with history of Parkinson's disease for swallow dysfunction Physical therapy feels he is a 2 person max assist at this time (2) Hypertension: -Continue lisinopril 5 mg daily, metoprolol 50 mg daily, Lasix 20 mg daily- care to avoid hypotension As mentioned added an aspirin to his regiment which is both cardiovascular and cerebrovascular risk protection Urgent CT scan performed 12/13 is without stroke I believe his left arm movement issues are musculoskeletal MRI on 12/15 also negative for stroke (3) Hyperlipidemia: -Continue rosuvastatin 10 mg daily (4) Hypertrophic cardiomegaly: (5) Diastolic dysfunction: -Last echo was conducted on 10/03/2017 showing severe concentric LVH, left ventricular systolic function low normal 55- 60%, moderate RVH, mild aortic regurg, moderate mitral regurg, elevated RV systolic pressure at 40 to 50 mmHg. 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 (11) Parkinsonism: -PT/OT patient is requiring significant assistance discussion with family regarding subacute rehab, is not interested in skilled nursing placement but admits she cannot care for the patient at home herself -Speech eval, there is no definite aspiration seen speech therapy recommended an easy to chew diet with aspiration prevention procedures followed -Lives at home with , has steps to get in and out of the house which have been difficult for him weakness and falls due to progressive parkinsons disease (12) Sleep apnea: -Continue CPAP HS (13) DVT prophylaxis: - teds, scds CODE: Full code Dispo: From home, likely to remain in the hospital x 2 days and discharge to inpatient rehab Admission and Anticipated Discharge Date Admission Date: December 13, 2019 Subjective remains pleasantly confused, thinks his was here today( no visitation a llowed) was seen by neurolgoy and started on sinemet Results & Data Results & Data ([facility]) Vital Signs (Past 12 Hours) Vital Signs Temp Pulse Pulse Pulse Resp BP BP 12/16/19 11:00 97.5 F L 58 L 112/69 12/16/19 08:56 69 12/16/19 08:00 51 L 12/16/19 07:23 97.7 F 58 L 18 130/74 12/16/19 04:00 97.5 F L 55 L 20 136/71 Pulse Ox 12/16/19 11:00 97 12/16/19 08:56 12/16/19 08:00 12/16/19 07:23 93 12/16/19 04:00 97 PG Care Time/CCT Total # of Minutes Spent Total Time Spent with Patient: Total time spent is greater than 50% in coordination of care (as documented) at patient's floor/unit and/or counseling patient: Coding Level of Care Code 94232 Subseq Hosp Care Lvl 2 Diagnoses Ambulatory dysfunction R26.2 Hypertension I10 Hyperlipidemia E78.5 Hypertrophic cardiomegaly I51.7 Diastolic dysfunction I51.89 Cardiac amyloidosis E85.4; I43 Bradycardia R00.1 Aortic insufficiency I35.1 Mitral regurgitation I34.0 Nontoxic multinodular goiter E04.2 Parkinsonism G20 Sleep apnea G47.30 DVT prophylaxis Z29.9
[2019-12-17] MEDS: METOPROLOL SUCC 50MG EXT REL TAB PO SCH (08:05)
[2019-12-17] MEDS: ROSUVASTATIN CALCIUM 10 MG TAB PO SCH (08:05)
[2019-12-17] MEDS: DICLOFENAC SODIUM 25 MG TABDR PO SCH ×3 (08:06→21:56)
[2019-12-17] MEDS: lisinopriL 5 MG TAB PO SCH (08:06)
[2019-12-17] MEDS: CARBIDOPA/LEVODOPA 25/100MG TAB PO SCH ×4 (08:06→21:55)
[2019-12-17] MEDS: FUROSEMIDE 20 MG TAB PO SCH (08:06)
--- NOTE | 2019-12-17 11:40 | Hospitalist Progress Note ---
Date of Service December 17, 2019 Assessment & Plan (1) Ambulatory dysfunction: no apparent injury with recent falling Weakness and gait instability associate with progressive Parkinson's disease did have neurological consult 12/15, did order mri of brain which was negative for stroke - speech eval with history of Parkinson's disease for swallow dysfunction Physical therapy feels he is a 2 person max assist at this time Dr. Singh started on Sinemet 1/2 tablet 25/100 TID, tolerating well, continue on discharge (2) Hypertension: -Continue lisinopril 5 mg daily, metoprolol 50 mg daily, Lasix 20 mg daily- care to avoid hypotension As mentioned added an aspirin to his regiment which is both cardiovascular and cerebrovascular risk protection MRI on 12/15 also negative for stroke (3) Hyperlipidemia: -Continue rosuvastatin 10 mg daily (4) Hypertrophic cardiomegaly: (5) Diastolic dysfunction: -Last echo was conducted on 10/03/2017 showing severe concentric LVH, left ventricular systolic function low normal 55- 60%, moderate RVH, mild aortic regurg, moderate mitral regurg, elevated RV systolic pressure at 40 to 50 mmHg. 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 Singh in the clinic (12) Sleep apnea: -Continue CPAP HS (13) DVT prophylaxis: - teds, scds CODE: Full code Dispo: From home, plan for [facility] tomorrow Admission and Anticipated Discharge Date Admission Date: December 13, 2019 Subjective patient resting in bed, says he is feeling a little stronger on the Sinemet participating in therapy he is eating well, no dyspnea, no chest pain, no GI issues discussed going to rehab tomorrow, he agrees with the plan no labs today CM discussed plan with patient's , she agrees Review of Systems Review of Systems: All systems reviewed & are unremarkable except as noted in HPI & below Physical Exam Constitutional: WD/WN, vitals as above Eyes: PERRL, conjunctivae normal, anicteric sclerae ENMT: external ear and nose normal, oropharynx normal Neck: trachea midline, no thyromegaly Respiratory: normal respiratory effort, lungs clear to auscultation Cardiovascular: RRR, no murmur, no edema Gastrointestinal (Abdomen): normal bowel sounds, soft, nontender, no hepatosplenomegaly Musculoskeletal: Head/Neck/Chest: normocephalic, head atraumatic and neck supple Extremities: extremities normal to inspection and + abnormal strength (generalized weakness) Skin: no rashes, warm and dry Neurologic: normal touch/pain/proprioception, CN's II-XI intact bilaterally, moves all extremities and awake; no focal motor deficits Motor/Sensory: + tremor (mild, bilateral) Gait: + shuffling gait Psychiatric: Orientation: alert and oriented x 3 Affect: + flat affect Lymphatic: no cervical or axillary lymphadenopathy Results & Data Results & Data ([facility]) Vital Signs (Past 12 Hours) Vital Signs Temp Pulse Pulse Pulse Resp BP Pulse Ox 12/17/19 08:05 63 12/17/19 07:10 36.3 C L 51 L 18 113/70 97 12/17/19 07:00 52 L 12/17/19 03:38 36.7 C 56 L 20 117/73 95 Medications Administered Current Inpatient Medications Acetaminophen (Tylenol) 650 mg PO Q4H PRN PRN Reason: Moderate Pain Stop: 01/12/20 10:34 Carbidopa/Levodopa (Sinemet 25/100 Mg) 0.5 tab PO TID POPEYE Stop: 01/15/20 13:59 Last Admin: 12/17/19 08:06 Dose: 0.5 tab Documented by: Diclofenac Sodium (Voltaren) 50 mg PO BID POPEYE Stop: 01/12/20 10:34 Last Admin: 12/17/19 08:06 Dose: 50 mg Documented by: Furosemide (Lasix) 20 mg PO DAILY POPEYE Stop: 01/12/20 10:34 Last Admin: 12/17/19 08:06 Dose: 20 mg Documented by: Gadobutrol (Gadavist 30ml) 8 ml IV ONCE PRN PRN Reason: Interaction Checking Stop: 12/20/19 12:35 Last Admin: 12/16/19 12:36 Dose: 8 ml Documented by: Lisinopril (Zestril) 5 mg PO DAILY [facility] Stop: 01/12/20 10:34 Last Admin: 12/17/19 08:06 Dose: 5 mg Documented by: Metoprolol Succinate (Toprol Xl) 50 mg PO DAILY [facility] Stop: 01/12/20 10:34 Last Admin: 12/17/19 08:05 Dose: 50 mg Documented by: Miscellaneous (Order Awaiting Action) 1 ea N/A QS [facility] Stop: 01/12/20 15:59 Last Admin: 12/17/19 08:00 Dose: Not Given Documented by: Ondansetron HCl (Zofran) 4 mg IV Q4H PRN PRN Reason: Nausea And Vomiting Stop: 01/12/20 10:34 Rosuvastatin Calcium (Crestor) 10 mg PO DAILY [facility] Stop: 01/12/20 10:34 Last Admin: 12/17/19 08:05 Dose: 10 mg Documented by: PG Care Time/CCT Total # of Minutes Spent Total Time Spent with Patient: Total time spent is greater than 50% in coordination of care (as documented) at patient's floor/unit and/or counseling patient: Coding Level of Care Code 69208 Subseq Hosp Care Lvl 2 Diagnoses Ambulatory dysfunction R26.2 Hypertension I10 Hyperlipidemia E78.5 Hypertrophic cardiomegaly I51.7 Diastolic dysfunction I51.89 Cardiac amyloidosis E85.4; I43 Bradycardia R00.1 Aortic insufficiency I35.1 Mitral regurgitation I34.0 Nontoxic multinodular goiter E04.2 Parkinsonism G20 Sleep apnea G47.30 DVT prophylaxis Z29.9
[2019-12-18] MEDS: ROSUVASTATIN CALCIUM 10 MG TAB PO SCH (09:03)
[2019-12-18] MEDS: FUROSEMIDE 20 MG TAB PO SCH (09:03)
[2019-12-18] MEDS: DICLOFENAC SODIUM 25 MG TABDR PO SCH (09:04)
[2019-12-18] MEDS: CARBIDOPA/LEVODOPA 25/100MG TAB PO SCH (09:04)
[2019-12-18] MEDS: lisinopriL 5 MG TAB PO SCH (09:04)
[2019-12-18] MEDS: METOPROLOL SUCC 50MG EXT REL TAB PO SCH (09:08)
--- NOTE | 2019-12-18 10:57 | Neurology Progress Note ---
Date of Service December 18, 2019 Assessment & Plan (1) Parkinsonism: (2) Dementia: This patient has chronic, progressive dementia and parkinsonism that began over 5 years ago. His neurodegenerative condition was initially characterized by progressive decline in memory function, later followed by rigidity, bradykinesia, tremor, and ambulatory dysfunction. His parkinsonism was felt to be unresponsive to Sinemet in the past. He may have dementia with Lewy bodies or possibly levodopa resistant atypical Parkinson's disease. Currently, he does not have a resting tremor but does have moderate to significant bradykinesia and rigidity. The left side seems to be not used as much as the right as if it was weak or previous stroke but MRI did not show a stroke and his strength is actually quite good. He probably has a [place] parkinsonism with left-sided features worse than right. Mental status is consistent with dementia. He does not seem to have any obvious hallucinations. Currently he is on a very low dose of Sinemet and he seems to be tolerating this as well. He has a history of intolerance to donepezil. Recommendations: 1. Continued carbidopa/levodopa 25/100, 1 whole tablet 3 times daily. 2. Patient needs physical and occupational therapy and is awaiting placement. 3. There is no need for a dementia medicine at this time but this could be reconsidered as an outpatient. Overall, I spent a total of 35 minutes with this case including review of records, review of MRI films, direct evaluation the patient at bedside, and discussing the case with the patient at bedside, and Dr. Rehman including differential diagnosis and treatment options. Admission and Anticipated Discharge Date Admission Date: December 13, 2019 Subjective The patient has no complaint of pain or headache. He is not dizzy. He knows his name but not the day, date, or month (he does not care) He did give me details regarding his previous place of , where he grew up, fact that he was in the state [employer] and some other jobs over time. He is not certain when he retired. MRI of the brain December 15 did not show any stroke. There was significant generalized atrophy and a small frontal meningioma on the left which was unchanged. I reviewed these films. Blood pressure is 118/72. Pulse is 58 and regular and temperature 36.8. He has tolerated Sinemet 25/100, 1/2 tablet 3 times a day. He is still somewhat stiff and slow. Results & Data ([facility]) Vital Signs (Past 12 Hours) Vital Signs Temp Pulse Pulse Resp BP Pulse Ox 12/18/19 07:37 36.8 C 58 L 20 118/72 95 12/18/19 03:19 37.0 C 54 L 17 122/75 94 12/17/19 23:00 36.3 C L 73 20 116/74 96 Exam (Neuro) Physical Exam: He is awake and alert. Speech is without specific aphasia or dysarthria. Mood is reasonable affect is somewhat flat. He has a mild to moderate masklike face and bradykinesia in general. He tends to lean to the left and not move his left arm or leg as well as the right. Nevertheless, strength seems 5/5 diffusely in all major muscle groups in arms and legs both proximally and distally. There is moderate rigidity present bilaterally in all 4 limbs as well. Extraocular eye muscles are intact without nystagmus and there is no facial droop. Tongue is midline. PG Care Time/CCT Total # of Minutes Spent Total Time Spent with Patient: Total time spent is greater than 50% in coordination of care (as documented) at patient's floor/unit and/or counseling patient: Coding Level of Care Code 59779 Subseq Hosp Care Lvl 3 Diagnoses Parkinsonism G20 Dementia F03.90 Time Spent (min) 35
--- NOTE | 2019-12-18 20:53 | Discharge Summary ---
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 Pt presented with increased weakness over the past 3 weeks with his . He reports having fallen 3 times within the past few weeks. Patient reports that he just feels weak, has a shuffling gait, and is worse with his left foot and left arm compared to the right. Denies any LOC or hitting of the head on his most recent fall which occurred early this morning. Typically he uses a cane for ambulatory assistance, but was not using it this morning. He did not take any of his morning medications. Patient denies any other acute complaints. He participated in PT/OT at [facility] about 2 years ago for similar issues. reports that he may be diagnosed with parkinsons disease, as he has a lot of the features including the shuffling gait and fine tremor. He denies any issues with swallowing or speaking, no respiratory complaints. Patient has had difficulty with steps in his home in the last few weeks. Principal Diagnosis Weakness and falls due to Parkinsonism Discharge Exam Constitutional WD/WN, vitals as above Eyes PERRL, conjunctivae normal, anicteric sclerae ENMT external ear and nose normal, oropharynx normal Neck trachea midline, no thyromegaly Respiratory normal respiratory effort, lungs clear to auscultation Cardiovascular RRR, no murmur, no edema Gastrointestinal (Abdomen) normal bowel sounds, soft, nontender, no hepatosplenomegaly Musculoskeletal Head/Neck/Chest: normocephalic, head atraumatic and neck supple Extremities: extremities normal to inspection and + abnormal strength (generalized weakness) Skin no rashes, warm and dry Neurologic normal touch/pain/proprioception, CN's II-XI intact bilaterally, moves all extremities and awake; no focal motor deficits Motor/Sensory: + tremor (mild, bilateral) Gait: + shuffling gait Psychiatric Orientation: alert and oriented x 3 Affect: + flat affect Lymphatic no cervical or axillary lymphadenopathy Discharge Data Allergies Allergy/AdvReac Type Severity Reaction Status Date / Time ranitidine Allergy Intermediate ITCHY HIVES Verified 12/13/19 06:17 Consultations 12/13/19 07:22 ED Decision to Admit Stat 12/13/19 10:35 Consult Case Management - Discharge Planning Routine 12/16/19 08:13 Consult Neurology Routine Ordered Studies 12/13/19 05:11 CT cervical spine wo con Urgent CT head/brain wo con Urgent 12/14/19 09:04 CT head/brain wo con Stat 12/16/19 10:46 MR brain wo/w con Routine Hospital Course (1) Ambulatory dysfunction: no apparent injury with recent falling Weakness and gait instability associate with progressive Parkinson's disease did have neurological consult 12/15, did order mri of brain which was negative fo r stroke - speech eval with history of Parkinson's disease for swallow dysfunction, he is safe to eat Physical therapy feels he is a 2 person max assist at this time Dr. Singh started on Sinemet 1/2 tablet 25/100 TID, tolerating well Dr. Silva recommends increasing to 1 tablet 25/100 TID, will prescribe on discharge follow up with Dr. Singh in several weeks (2) Hypertension: -Continue lisinopril 5 mg daily, metoprolol 50 mg daily, Lasix 20 mg daily- care to avoid hypotension should consider adding aspirin 81mg daily for cardiovascular and stroke pre vention MRI on 12/15 also negative for stroke (3) Hyperlipidemia: -Continue rosuvastatin 10 mg daily (4) Hypertrophic cardiomegaly: (5) Diastolic dysfunction: -Last echo was conducted on 10/03/2017 showing severe concentric LVH, left ventricular systolic function low normal 55- 60%, moderate RVH, mild aortic regu rg, moderate mitral regurg, elevated RV systolic pressure at 40 to 50 mmHg. -Continue medications as above examines euvolemic for several days (6) Cardiac amyloidosis: -Noted (7) Bradycardia: -Noted, HR = 57 on EKG on admission, reviewed as above, continue beta- blockade HR is stable for several days (8) Aortic insufficiency: -Noted (9) Mitral regurgitation: -Noted (10) Nontoxic multinodular goiter: -Stable (11) Parkinsonism: -PT/OT patient is requiring significant assistance discussion with family regarding subacute rehab, is not interested in predatory animal exterminator placement but admits she cannot care for the patient at home herself -Speech eval, there is no definite aspiration seen speech therapy recommended an easy to chew diet with aspiration prevention procedures followed -Lives at home with , has steps to get in and out of the house which have been difficult for him weakness and falls due to progressive Parkinsonism started on Sinemet 1/2 tablet 25/100 TID, increased to 1 tablet on day of discharge will follow up with Dr. Singh in the clinic (12) Sleep apnea: -Continue CPAP HS Total Time Total Time Spent Total Time Spent (In Minutes): 31 minutes Total Time Includes: Examination of the Patient, Discharge Planning, Medication Reconciliation, Communication With Other Providers (Dr. Silva, neurology) and Other (discussed with family) Discharge Plan Discharge Items Patient Disposition: Transfer Inpatient Rehab Fac Reason For Visit: WEAKNESS,FALL,BRADYCARDIA Discharge Diagnosis: Weakness and falls Parkinson's disease Condition on Discharge: Good Goals: improve strength, mobility, balance follow up with Dr. Singh in the neurology clinic in 6-8 weeks, follow up P arkinson's disease Activity: Resume your previous activity Exercise/Sports: Gradually increase as tolerated Weightbearing: Full weightbearing Non-emergency contact: Primary Care Provider Call non-emergency contact if: you have any medication questions, your symptoms worsen and you have a fever Follow-up/Referrals: Kieran Meyer MD [Primary Care Provider] - Frank Singh MD [Physician] - (6-8 weeks) Diet: Heart Healthy Addtl Attending Provider Instructions: Medications: - SINEMET: started this admission by neurology, continue on 1 tablet three times a day, follow up with Dr. Singh in 6-8 weeks Weakness, ambulatory dysfunction, Parkinsonism evaluated by neurology, they recommended starting on Sinemet TID started on 1/2 a tablet while here, Dr. Silva recommends increasing to 1 tablet TID follow up with Dr. Singh no other medication changes patient lives at home with his , he currently needs rehab to improve strength and mobility prior to returning home Pending Studies at Discharge: No Stand-Alone Forms: My [facility]! Skilled Items Patient informed of condition?: Yes DNR: No Discharge Level of Care: Acute rehab Communicable Disease: No Discharge Prognosis: Stable Lines: None Urinary Catheter: No Medications and DC Order Prescriptions: New carbidopa-levodopa 25-100 mg Tablet 1 tab PO TID 30 Days Qty: 90 RF: 3 Continued silodosin [Rapaflo] 8 mg capsule 8 mg PO DAILY Qty: 90 RF: 3 diclofenac sodium 50 mg tablet,delayed release (DR/EC) 50 mg PO BID Qty: 180 RF: 3 lisinopril 5 mg tablet 5 mg PO DAILY Qty: 90 RF: 3 rosuvastatin 10 mg tablet 10 mg PO DAILY Qty: 30 RF: 5 metoprolol succinate 50 mg tablet extended release 24 hr 50 mg PO DAILY Qty: 90 RF: 3 furosemide 20 mg tablet 20 mg PO DAILY RF: 0 Discharge Orders: Discharge Order (Routine); Ordered 12/18/19 Ordered By: Rishi Rehman Admission Data Admit Date/Time: 12/13/19 08:04 Attending Provider: Rishi Rehman Admit Provider: Ori Riley Primary Care Provider: Kieran Meyer Other Providers: Rozina Wilkinson ; [facility] ; Frank Singh Other Interventions: Discharge Summary Assessment (RN) Last Done: 12/18/19 12:10 DC Date/Time DO NOT enter until pt leaves facility: 12/18/19 12:35 Coding Level of Care Code D/C Day Management >30 mins Diagnoses Ambulatory dysfunction R26.2 Hypertension I10 Hyperlipidemia E78.5 Hypertrophic cardiomegaly I51.7 Diastolic dysfunction I51.89 Cardiac amyloidosis E85.4; I43 Bradycardia R00.1 Aortic insufficiency I35.1 Mitral regurgitation I34.0 Nontoxic multinodular goiter E04.2 Parkinsonism G20 Sleep apnea G47.30
== END 2019-12-18 12:35 | DRG 57 ==
LOC: ED 04:58 → SUATTDRO 08:04 → 2N 08:04